=== PATIENT | female | born 1945 | race Caucasian/White ===

== ENCOUNTER 2016-08-08 11:51 | Emergency (ER) | payer MEDICARE, MEDICAID ==
[~2016-08-08] VITALS: Ht 156.2 cm; Wt 90.9 kg
[~2016-08-08 11:51] MED LIST: CITA20TA11 PO; HYDR-3605 PO; HYDR-4003 PO; LEVO100T6 PO; MELO-253 PO; [UNRECOGNIZED DRUG - CODE] PO
[2016-08-08 11:54] VITALS: BP 150/100; PULSE 71; RESP 16; O2SAT 97
[2016-08-08 12:53] LABS: APPEARANCE,URINE SLIGHTLY CLOUDY (CLEAR,HAZY); COLOR,URINE YELLOW (YELLOW)
[2016-08-08 12:54] LABS: OCCULT BLOOD,URINE NEGATIVE (NEGATIVE); UROBILINOGEN,URINE NORMAL (NORMAL)
[2016-08-08 13:11] LABS: BASOPHILS % (AUTO) 0.4 % (0-3); EOSINOPHILS % (AUTO) 0.7 % (0-5); MONOCYTES % (AUTO) 5.8 % (4-12); Mean Corpuscular Hemoglobin 29.6 pg (27.0-35.0); Mean Corpuscular Volume 94.5 fL (81-100); NEUTROPHILS % (AUTO) 79.8 % (40-74); Platelet Count 238 bil/L (150-400)
--- NOTE | 2016-08-08 13:19 | ED.REPORT ---
HPI-Abd Pain F 40 and Over Date of Service August 08, 2016 ED Provider: Wilbert Triplett MD A 71 year old female with a medical history including Parkinson's disease, hypothyroidism, and chronic pain presents to the ED from Urgent Care with lower abdominal pain onset last night. Associated symptoms include dysuria, fatigue, weakness, and confusion. The patient denies nausea, vomiting, fever, hematochezia, melena, back pain, or other symptoms. She has had two UTIs in the past two months. Nursing Notes Stated Complaint: POSSIBLE UTI SENT FROM URGENT CARE Chief Complaint: Female Abdominal Pain Nursing Notes Reviewed: Yes Allergies: Coded Allergies: No Known Allergies (Verified , 08/08/16) Scheduled Carbidopa/Levodopa ER 50-200 mg (Sinemet CR 50-200 mg) 1 Ea Tabcr 1 EA PO 6-7x daily Cephalexin (Keflex) 500 Mg Capsule 500 MG PO QID Citalopram (Citalopram) 20 Mg Tablet 40 MG PO DAILY Levothyroxine (Levothyroxine) 100 Mcg Tablet 88 MCG PO DAILY Meloxicam (Meloxicam) 15 Mg Tablet 15 MG PO DAILY Scheduled PRN HydrOXYzine HCl (HydrOXYzine HCl) 10 Mg Tablet 10-20 MG PO Q4-6H PRN PRN For Anxiety or Agitation Hydrocodone-Acetaminophen 5-325 mg (Hydrocodone-Acetaminophen 5-325 mg) 1 Each Tablet 1-2 EACH PO q 4-6 PRN PRN For Pain General Time Seen by MD: 12:14 Chief Complaint Abdominal pain Hx Obtained From: Patient Arrived By: Walk-in Sudden in Onset?: Yes Onset Occurred: Yesterday (Last night) Symptom Duration: Since onset Location: : Abdomen lower Quality: Painful Severity: Current: Moderate Severity: Maximum: Moderate Pertinent Negative: Relieved by nothing Context Related History: Reports: Urinary tract infection Recent Healthcare: Recent doctor visit Similar Sx Previous: Yes Past Medical History Past Medical History Hypothyroidism Chronic pain syndrome Parkinson's disease Past Surgical History Right knee replacement Reports: Hysterectomy Smoking History Former Smoker Social History Alcohol Use: Denies alcohol use Drug Use: Denies drug use Other Social History: Good social support Ambulatory Status Independent Review of Systems Constitutional: Reports: Fatigue, Weakness - generalized, Denies: Fever Respiratory: Denies: Non-productive cough, Shortness of breath GI: Reports: Abdominal pain (Lower), Denies: Hematochezia, Melena, Nausea, Vomiting Female: Reports: Dysuria Musculoskeletal: Denies: Back pain Complete sys rev & neg: except as marked. Neurologic: Reports: Confusion Physical Exam Vital Signs Vital Signs (First) Date Time Temp Pulse Resp B/P Pulse Ox O2 Delivery O2 Flow Rate FiO2 08/08/16 11:54 36.6 71 16 150/100 97 Room Air Initial VS: Reviewed Head / Eyes: Atraumatic, Normocephalic ENT: Conjunctiva normal, No scleral icterus Skin: Warm, Dry, No cyanosis Neurologic: Alert, Oriented, Nonfocal Psychiatric: Mood/affect normal, Behavior normal, Normal thought content General/Constitutional: Awake, Alert Respiratory / Chest: Breath sounds NL, Breath sounds = bilat, No respiratory distress Cardiovascular: Heart rate NL, Regular rhythm, Heart sounds NL, No murmurs Abdomen: Soft, Non-tender, No guarding, No rebound Lower Extremity / Pelvis / MS: Inspection NL, No edema Interpretation & Diagnostics Lab Results Interpretation Result Diagram: 08/08/16 1300 08/08/16 1300 Test 08/08/16 12:24 08/08/16 13:00 Urine Color Yellow (YELLOW) Urine Appearance Slightly cloudy Urine pH 7.0 (5.0-8.0) Urine Specific [place] 1.010 (1.003-1.035) Urine Protein Tracemg/dL (NEG,TRACE) Urine Glucose (UA) Negativemg/dL (NEGATIVE) Urine Ketones Negativemg/dL (NEGATIVE) Urine Occult Blood Negative (NEGATIVE) Urine Nitrite Negative (NEGATIVE) Urine Bilirubin Negative (NEGATIVE) Urine Urobilinogen Normalmg/dL (NORMAL) Urine Leukocyte Esterase Moderate (NEGATIVE) Urine RBC 0-2/hpf (0-2) Urine WBC >50/hpf (0-5) Urine Epithelial Cells Occasional/hpf (NONE-MOD) Urine Crystals None seen (NONE SEEN) Urine Bacteria Many/hpf (NONE-FEW) Urine Hyaline Casts None/lpf (NONE) Urine Granular Casts None seen (NONE SEEN) Urine Waxy Casts None seen (NONE SEEN) Urine Red Blood Cell Casts None seen (NONE SEEN) Urine White Blood Cell Casts None seen (NONE SEEN) Urine Mucus None seen (None Seen) Urine Trichomonas None seen (NONE SEEN) Urine Yeast None (NONE SEEN) Urinalysis Comment None Urine Culture Reflexed Indicated White Blood Count 10.0th/mm3 (3.8-10.1) Red Blood Count 4.76mil/mm3 (3.90-5.20) Hemoglobin 14.1g/dL (12.0-15.6) Hematocrit 45.0% (35.0-46.0) Mean Corpuscular Volume 94.5fL (81-100) Mean Corpuscular Hemoglobin 29.6pg (27.0-35.0) Mean Corpuscular Hemoglobin Concent 31.3% (32.0-37.0) Red Cell Distribution Width 15.7% (12.3-15.4) Platelet Count 238bil/L (150-400) Neutrophils (%) (Auto) 79.8% (40-74) Lymphocytes (%) (Auto) 13.2% (14-46) Monocytes (%) (Auto) 5.8% (4-12) Eosinophils (%) (Auto) 0.7% (0-5) Basophils (%) (Auto) 0.4% (0-3) Sodium Level 141mEq/L (134-144) Potassium Level 4.5mEq/L (3.5-5.2) Chloride Level 102mEq/L (97-108) Carbon Dioxide Level 27mmol/L (18-29) Blood Urea Nitrogen 19mg/dL (8-27) Creatinine 0.88mg/dL (0.57-1.00) Estimat Glomerular Filtration Rate 91mL/min (>59) Glucose Level 106mg/dL (60-99) Lactic Acid Level 1.1mmol/L (0.4-2.0) Calcium Level 8.9mg/dL (8.5-10.1) Magnesium Level 2.3mg/dL (1.6-2.6) Total Bilirubin 0.6mg/dL (0.0-1.2) Aspartate Amino Transf (AST/SGOT) 30U/L (0-50) Alanine Aminotransferase (ALT/SGPT) 9U/L (0-32) Alkaline Phosphatase 93U/L (25-165) Total Protein 7.3g/dL (6.4-8.4) Albumin 4.2g/dL (3.4-5.0) Lipase 23U/L (13-60) Re-Eval/Medical Decision Med Decision/Clinical Course 71-year-old female with recurrent UTIs presenting with dysuria. Vital signs stable. Exam is benign as above. White blood cell count lactate are normal. She does have a UTI on urinalysis. Patient will be treated with Keflex with return precautions for signs and symptoms pyelonephritis or any other new or worsening symptoms. Source of Hx: Old records Re-Evaluation/Progress : Time of Eval: 13:00 Patient Status: Condition improved Re-Evaluation/Progress Note: Discussed with patient lab results, diagnosis, and plan for discharge if additional labs are unremarkable. Follow-up and return to the ER instructions given. Patient agrees with plan for care and all questions were addressed. Counseled Regarding: Diagnosis, Lab results, Need for follow-up, When/why to return to ED Discharge & Departure Primary Impression: UTI (urinary tract infection) Urinary tract infection type: acute cystitis Hematuria presence: without hematuria Qualified Code: N30.00 - Acute cystitis without hematuria Disposition: Home Discharge Condition All VS Reviewed: Yes Condition: Improved Patient Instructions: Urinary Tract Infection in Women (GEN) Additional Instructions: Thank you for entrusting us with your care. Please take Keflex as prescribed. Call your primary care provider on Thursday for a follow-up appointment. Return to the ER with any new or worsening symptoms including abdominal pain, back pain, fever, chills, nausea, and vomiting. Referrals: [facility] (PCP) [place] Attestation Portions of this note were transcribed by Mary Ellen Vinson. I, Dr. Triplett, personally performed the history, physical exam, and medical decision-making; I reviewed and confirmed the accuracy of the information in the transcribed note. Signed by: Blas Whittington, 08/08/2016, 14:45 copies to: [facility] Wilbert Triplett MD August 08, 2016 13:19 MARY ELLEN VINSON August 08, 2016 13:25
[2016-08-08 13:34] LABS: Magnesium 2.3 mg/dL (1.6-2.6)
[2016-08-08] MEDS ORDERED: CEPH-512 PO (14:10)
[2016-08-08 17:00] VITALS: BP 132/80; PULSE 66; RESP 16; O2SAT 93
[2016-08-08 17:01] VITALS: BP 132/80; PULSE 66; RESP 16; O2SAT 93
== END 2016-08-08 17:02 | disposition home or self-care (01) ==
LOC: SED 12:12
DX: N30.00 Acute cystitis without hematuria (principal); G20 Parkinson's disease; E03.9 Hypothyroidism, unspecified; Z87.891 Personal history of nicotine dependence

== ENCOUNTER 2016-10-12 08:31 | Inpatient (IN) | payer MEDICARE, MEDICAID ==
[~2016-10-12] VITALS: Ht 154.9 cm; Wt 95.5 kg
[~2016-10-12 08:31] MED LIST changes: +CEPH-512 PO
[2016-10-12 08:36] VITALS: BP 146/66; PULSE 93; RESP 20; O2SAT 91
--- NOTE | 2016-10-12 08:37 | ED.REPORT ---
HPI-General Illness Date of Service Oct 12, 2016 ED Provider: Alexis Smith MD Pt is a 71 year old female with a hx of Parkinson's and UTIs who presents to the ED via EMS with concerns for weakness, fevers and difficulty urinating. She has been feeling increasingly weak and confused over the last four days. These symptoms have been worsening over the last couple of days, and was unable to get our of bed or ambulate this morning. Pt states that she has had UTIs in the past, and has a similar presentation. Pt admits to a non-productive cough, mild shortness of breath, dysuria, but she denies any significant chest pain, loss of consciousness, rash, trauma to her head, nausea or any other symptoms. Nursing Notes Stated Complaint: ALTERED LOC Chief Complaint: General Complaint Nursing Notes Reviewed: Yes Allergies: Coded Allergies: No Known Allergies (Verified , 08/08/16) Scheduled Carbidopa/Levodopa (Rytary ER 61.25 mg-245 mg Cap) 61.25 Mg-245 Mg Capsule.er 2 EACH PO 5XD Carbidopa/Levodopa (Rytary ER 23.75 mg-95 mg Cap) 23.75 Mg-95 Mg Capsule.er 1 EACH PO 5XD Citalopram (Citalopram) 20 Mg Tablet 40 MG PO DAILY Rivastigmine (Rivastigmine) 1.5 Mg Capsule 2 CAPSULE PO BID Scheduled PRN HydrOXYzine HCl (HydrOXYzine HCl) 10 Mg Tablet 10-20 MG PO Q4-6H PRN PRN For Anxiety or Agitation Hydrocodone-Acetaminophen 5-325 mg (Hydrocodone-Acetaminophen 5-325 mg) 1 Each Tablet 1-2 EACH PO q 4-6 PRN PRN For Pain Miscellaneous Medications Levothyroxine Sodium (Levo-T) 100 Mcg Tablet 100 MCG PO General Time Seen by MD: 08:36 Chief Complaint Altered mental status Hx Obtained From: Patient Arrived By: Walk-in Sudden in Onset?: Yes Onset Occurred: Yesterday Symptom Duration: Since onset Severity: Current: No pain currently Severity: Maximum: No pain Similar Sx Previous: Yes Past Medical History Past Medical History Hypothyroidism Chronic pain syndrome Parkinson's disease Past Surgical History Right knee replacement Reports: Hysterectomy Smoking History Former Smoker Social History Alcohol Use: Denies alcohol use Drug Use: Denies drug use Other Social History: Good social support Ambulatory Status Independent Review of Systems Full Review of Systems Constitutional: Reports: Fever, Weakness - generalized, Denies: Chills, Malaise Respiratory: Reports: Non-productive cough Cardiovascular: Denies: Chest pain, Syncope GI: Reports: Diarrhea, Denies: Abdominal pain, Nausea, Vomiting Female: Reports: Urination decreased Musculoskeletal: Denies: Back pain Skin: Denies Rash Neurologic: Denies: Change LOC, Dizziness, Headache, Syncope, Weakness Complete sys rev & neg: except as marked. Physical Exam Vital Signs Vital Signs Date Time Temp Pulse Resp B/P Pulse Ox O2 Delivery O2 Flow Rate FiO2 10/12/16 09:08 90 21 141/80 94 Nasal Cannula 2 10/12/16 08:57 38.1 94 Nasal Cannula 2 10/12/16 08:36 37.2 93 20 146/66 91 Room Air Initial VS: Reviewed Head / Eyes: Atraumatic, Normocephalic, PERRL Neck: Supple, Non-tender, Full range of motion Cardiovascular: Regular rate & rhythm, Heart sounds normal, Intact distal pulses Back: No CVA tenderness Skin: Warm, Dry, No cyanosis General/Constitutional: No acute distress Somnulent Answers questions appropriately, but often dozes off mid-sentence Head and face are atraumatic No rash ENT: Atraumatic Mouth: Positive: Mucous membranes dry Respiratory / Chest: Breath sounds NL Coarse breath sounds throughout Decreased breath sounds at the left lung base Interpretation & Diagnostics Lab Results Interpretation Result Diagram: 10/12/16 0840 10/12/16 0840 Test 10/12/16 08:40 10/12/16 09:00 10/12/16 09:01 White Blood Count 11.5th/mm3 (3.8-10.1) Red Blood Count 4.60mil/mm3 (3.90-5.20) Hemoglobin 14.1g/dL (12.0-15.6) Hematocrit 44.1% (35.0-46.0) Mean Corpuscular Volume 95.9fL (81-100) Mean Corpuscular Hemoglobin 30.7pg (27.0-35.0) Mean Corpuscular Hemoglobin Concent 32.0% (32.0-37.0) Red Cell Distribution Width 15.6% (12.3-15.4) Platelet Count 202bil/L (150-400) Neutrophils (%) (Auto) 86.6% (40-74) Lymphocytes (%) (Auto) 4.3% (14-46) Monocytes (%) (Auto) 7.2% (4-12) Eosinophils (%) (Auto) 1.5% (0-5) Basophils (%) (Auto) 0.2% (0-3) Sodium Level 141mEq/L (134-144) Potassium Level 4.2mEq/L (3.5-5.2) Chloride Level 102mEq/L (97-108) Carbon Dioxide Level 23mmol/L (18-29) Blood Urea Nitrogen 17mg/dL (8-27) Creatinine 0.96mg/dL (0.57-1.00) Estimat Glomerular Filtration Rate 82mL/min (>59) Glucose Level 99mg/dL (60-99) Calcium Level 8.6mg/dL (8.5-10.1) Magnesium Level 2.0mg/dL (1.6-2.6) Total Bilirubin 0.6mg/dL (0.0-1.2) Aspartate Amino Transf (AST/SGOT) 16U/L (0-50) Alanine Aminotransferase (ALT/SGPT) 10U/L (0-32) Alkaline Phosphatase 82U/L (25-165) Troponin T 0.010ug/L (0.0-0.011) Pro-B-Type Natriuretic Peptide 785.1pg/mL (0-301) Total Protein 7.3g/dL (6.4-8.4) Albumin 3.8g/dL (3.4-5.0) Lactic Acid Level 0.7mmol/L (0.4-2.0) Urine Color Yellow (YELLOW) Urine Appearance Hazy (CLEAR,HAZY) Urine pH 6.5 (5.0-8.0) Urine Specific [place] 1.010 (1.003-1.035) Urine Protein Negativemg/dL (NEG,TRACE) Urine Glucose (UA) Negativemg/dL (NEGATIVE) Urine Ketones Negativemg/dL (NEGATIVE) Urine Occult Blood Negative (NEGATIVE) Urine Nitrite Negative (NEGATIVE) Urine Bilirubin Negative (NEGATIVE) Urine Urobilinogen Normalmg/dL (NORMAL) Urine Leukocyte Esterase Small (NEGATIVE) Urine RBC 0-2/hpf (0-2) Urine WBC 11-50/hpf (0-5) Urine Epithelial Cells Occasional/hpf (NONE-MOD) Urine Crystals None seen (NONE SEEN) Urine Bacteria Many/hpf (NONE-FEW) Urine Hyaline Casts None/lpf (NONE) Urine Granular Casts None seen (NONE SEEN) Urine Waxy Casts None seen (NONE SEEN) Urine Red Blood Cell Casts None seen (NONE SEEN) Urine White Blood Cell Casts None seen (NONE SEEN) Urine Mucus None seen (None Seen) Urine Trichomonas None seen (NONE SEEN) Urine Yeast None (NONE SEEN) Urinalysis Comment None Urine Culture Reflexed Indicated ECG Interpretation ECG Interpretation: SR - 91 LBBB When compared to prior, dated: 05/20/14 pt remains with LBBB no acute morphologic changes hr is slightly increased Time: 08:45 Interpreted by: ED physician X-Ray Chest Interpretation Chest Xray Interpretation: IMPRESSION: 1. No definite acute cardiopulmonary disease. Dictated by: Dannie Oliveros M.D. on 10/12/2016 at 9:24 View: Portable, 1 view Interpretation / Wet Read by: Interpret - Radiologist Re-Eval/Medical Decision Med Decision/Clinical Course Pt is a 71 year old female with a hx of Parkinson's and frequent UTIs who presents to the ED via EMS with concerns for weakness, fevers and difficulty urinating. She has been feeling increasingly weak and confused over the last four days. These symptoms have been worsening over the last couple of days, and was unable to get our of bed or ambulate this morning. Pt states that she has had UTIs in the past, and has a similar presentation. Pt admits to a non- productive cough, mild shortness of breath, dysuria, but she denies any significant chest pain, loss of consciousness, rash, trauma to her head, nausea or any other symptoms. Upon arrival to the emergency department the patient is febrile with a temperature of 38.1 though otherwise hemodynamically stable. She is accompanied by her partner. She is obviously confused and unable to provide significant history so most of the history is obtained from her partner. Of note she is slightly hypoxic on room air and was placed on 2 L by nasal cannula. Laboratory studies notable as below: CBC: Leukocytosis, otherwise normal CMP: unremarkable Lactic Acid: 0.7 UA: few Leukocytes, no nitrites, many bacteria Chest x-ray was obtained and demonstrated no focal pneumonia or acute cardiopulmonary process. Overall presentation consistent with urinary tract infection. Given the patient 's advanced age, fever and signs of systemic illness I feel that she requires admission. At this time she technically meets sepsis criteria and her lactic acid is not significantly elevated nor is she with tachycardia or hypotension. Administered Tylenol for her fever as well as an IV fluid bolus. 2 sets of blood cultures were obtained and she was started on IV ceftriaxone. Patient was discussed with hospitalist and admitted for further management. Source of Hx: Old records Time of Eval: 09:40 Re-Evaluation/Progress Note: Pt is rechecked and informed of her labs and the plan to admit her at this time. She understands and agrees, all questions are addressed. Counseled Regarding: Diagnosis, Lab results, Need for admission Discharge & Departure Primary Impression: Fever Fever type: unspecified Qualified Code: R50.9 - Fever, unspecified Additional Impressions: Altered mental status Altered mental status type: unspecified Qualified Code: R41.82 - Altered mental status, unspecified Hypoxia UTI (urinary tract infection) Urinary tract infection type: site unspecified Hematuria presence: without hematuria Qualified Code: N39.0 - Urinary tract infection, site not specified Leukocytosis Leukocytosis type: unspecified Qualified Code: D72.829 - Elevated white blood cell count, unspecified Sepsis Sepsis type: sepsis due to unspecified organism Qualified Code: A41.9 - Sepsis, unspecified organism Disposition: ADMITTED TO HOSPITAL Discharge Condition All VS Reviewed: Yes Condition: Stable Referrals: [facility] Residency [facility] (PCP) Crit Care Except Billable Proc Time Spent: 75-104 minutes Services Performed: Patient management by me, Time spent at bedside, Reviewing test results, Reviewing imaging, Discussing patient care, Documentation in record, Time with fam/surrogate Scribe Attestation Portions of this note were transcribed by Angeline Davis. I, Dr. Smith personally performed the history, physical exam and medical decision-making; I reviewed and confirmed the accuracy of the information in the transcribed note. Signed by: Blas Hanna, 10/12/2016 [Time]. copies to: [facility] Alexis Smith MD Oct 12, 2016 08:37 RADHA DAVIS Oct 12, 2016 08:50
[2016-10-12 08:49] LABS: BASOPHILS % (AUTO) 0.2 % (0-3); EOSINOPHILS % (AUTO) 1.5 % (0-5); MONOCYTES % (AUTO) 7.2 % (4-12); Mean Corpuscular Hemoglobin 30.7 pg (27.0-35.0); Mean Corpuscular Volume 95.9 fL (81-100); NEUTROPHILS % (AUTO) 86.6 % (40-74); Platelet Count 202 bil/L (150-400)
[2016-10-12 08:57] VITALS: O2SAT 94
[2016-10-12 09:08] VITALS: BP 141/80; PULSE 90; RESP 21; O2SAT 94
[2016-10-12 09:20] LABS: TROPONIN T 0.01 ug/L (0.0-0.011)
[2016-10-12 09:21] LABS: APPEARANCE,URINE HAZY (CLEAR,HAZY); COLOR,URINE YELLOW (YELLOW); OCCULT BLOOD,URINE NEGATIVE (NEGATIVE); PH,URINE 6.5 (5.0-8.0); UROBILINOGEN,URINE NORMAL (NORMAL)
[2016-10-12] MEDS ORDERED: 0.9% Sodium Chloride 1,000 ML IV ONE (09:25)
[2016-10-12] MEDS ORDERED: Ondansetron 2 mg/mL 2 mL Inj IVPUSH PRN ×2 (09:25→10:30)
[2016-10-12] MEDS ORDERED: Alum-Mag Hydrox-Simeth 30 mL Suspension PO PRN ×2 (09:25→10:30)
--- NOTE | 2016-10-12 09:32 | DRSVH ---
PROCEDURE: X-RAY CHEST ONE VIEW, PORTABLE ([id number]) INDICATIONS: SOB TECHNIQUE: One view of the chest was acquired. COMPARISON: [facility], , CHEST 1VW (PORTABLE), 05/19/2014, 18:41. FINDINGS: Surgical changes and devices: None. Lungs and pleura: The medial lung apices are partially obscured by the patient's neck soft tissues. No pleural effusions or definite pneumothorax. Visualized lungs are clear. Mediastinum: Mediastinal contours appear unchanged. Heart size is within normal limits for techniqu e. Bones and chest wall: No suspicious bony lesions. Overlying soft tissues appear unremarkable. IMPRESSION: 1. No definite acute cardiopulmonary disease. Dictated by: Dannie Oliveros M.D. on 10/12/2016 at 9:24 Approved by: Dannie Oliveros M.D. on 10/12/2016 at 9:24
[2016-10-12] MEDS ORDERED: CARB1CAP PO (09:33)
[2016-10-12] MEDS ORDERED: RIVA1.5C6 PO (09:33)
[2016-10-12] MEDS ORDERED: LEVO-88 PO (09:33)
[2016-10-12] MEDS ORDERED: CARB1CAP7 PO (09:33)
[2016-10-12] MEDS ORDERED: cefTRIAXone Inj 2,000 MG in Dextrose 5% Minibag Plus 50 ML IV ONE (09:40)
[2016-10-12] MEDS ORDERED: Polyethylene Glycol (PEG) 17 Gm Powder PO PRN (10:30)
[2016-10-12] MEDS ORDERED: cefTRIAXone Inj 2,000 MG in Dextrose 5% Minibag Plus 50 ML IV SCH (11:00)
[2016-10-12 11:13] VITALS: BP 144/82; PULSE 84; RESP 20; O2SAT 95
[2016-10-12] MEDS: 0.9% Sodium Chloride 1,000 ML IV SCH ×2 (11:21→22:49)
--- NOTE | 2016-10-12 11:50 | NUR ---
Evaluation completed. Please go to "Notes" then click on "Assessments and Notes" (bottom left corner of screen). Then select appropriate discipline tab on top of screen.
[2016-10-12] MEDS ORDERED: HYDROXYZINE HCL 10 MG PO PRN (13:15)
[2016-10-12] MEDS ORDERED: QUET25TA73 PO (13:32)
[2016-10-12] MEDS: Nystatin 100,000 Unit/Gm 15 Gm Powder TOPICAL SCH ×2 (13:41→19:47)
[2016-10-12] MEDS ORDERED: CARBIDOPA PO SCH ×2 (14:00)
[2016-10-12] MEDS ORDERED: LEVODOPA PO SCH ×2 (14:00)
[2016-10-12] MEDS ORDERED: Carbidopa-Levodopa 50-200 mg ER12 Tablet PO SCH (14:48)
[2016-10-12] MEDS ORDERED: CARBIDOPA LEVODOPA PO SCH (14:51)
[2016-10-12] MEDS: RYTARY PO SCH ×6 (15:24→23:16)
--- NOTE | 2016-10-12 16:02 | NUR ---
Admit To [facility] room 1005 from ER at 10:50. Spouse at bedside. Alert and oriented, on 2L oxygen via nc. Marked generalized weakness, unable to transfer self from stretcher to bed. Med rec and admit done in ER by admit RN.
--- NOTE | 2016-10-12 16:42 | PCM.HPMED ---
Subjective Date of Service Oct 12, 2016 Primary Provider: Admitting Physician: Julien Reyes MD Primary Care Physician: Clinic,[facility] Residency Attending Physician: Julien Reyes MD Admit Status: From the Emergency Department, Admit to Red Team Chief Complaint: Fever, altered mental status and inability to void History of Present Illness: The patient is a 71-year-old white female with history of Parkinson's and frequent urinary tract infections develop increasing weakness and confusion over the last 4 days. The patient was unable to get out of bed or ambulate this morning. The patient has had urinary tract infections in the past and has had a similar presentation. However, she usually does not have fever. Her significant other are checked her temperature this morning and it was 101F. Therefore, patient was brought to [facility] emergency room for further evaluation and treatment. In the emergency department patient's temperature was 38.1C. Patient was found to be obviously confused and unable to provide significant history. Of note patient was found to be slightly hypoxic on room air was provided oxygen 2 L by nasal cannula. She is not on oxygen at home. Found to have a rattling cough and therefore chest x-ray was obtained and demonstrated no focal pneumonia or acute cardiopulmonary process. Given the patient's advanced age, fever and signs of systemic illness the patient's emergent physician felt that the patient required admission as patient met septic criteria is given an IV fluid bolus and 2 sets of blood cultures were obtained and her lactic acid was normal. She was administered Tylenol for fever and patient was started on IV ceftriaxone. Patient was then admitted to the hospitalist service for further evaluation and treatment. Review of Systems: General: Patient is in no apparent distress. However, she is a very poor historian and is having trouble finding her words which is not normal for her. HEENT: Patient has no headache, patient has no diplopia, patient has no changes in vision. However, patient does wear glasses and her eyes get "dry" B" at night Patient has no problems with their ears, nose or throat. Patient is edentulous and wears upper dentures normally. Patient has no pharyngitis or history of thrush. Neck: Patient has no stiffness in the neck. Patient has no lymphadenopathy. Patient has no other problems with their neck. Pulmonary: Patient has a very mild increase in shortness of breath, with a cough , no expectoration of sputum. Patient has no pleurisy. Patient has no chest pain. Patient has no history of asthma or COPD. Patient has a history of having pneumonia numerous times while in preschool Cardiovascular: Patient has no chest pain. Patient has no history of heart murmur. Patient has no palpitations. Patient has no history of myocardial infarction. Patient has no history of coronary artery disease. Gastrointestinal: Patient has no history of hepatitis A, B or C. Patient has no history of peptic ulcer disease. Patient has no history of gastroesophageal reflux disease. Patient has no history of nausea, vomiting, or diarrhea. Patient has no history of hematemesis, hematochezia, or melena. Patient has no history of colitis. Renal: Patient has no history of kidney disease. No history of kidney stones. 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 Patient has a history of incontinence and wears pull-ups. She does try to make it to the bathroom however since starting the drug Exelon she has trouble making it to the bathroom. Musculoskeletal: Patient has no history of muscular skeletal problems. Neurologic: Patient has no history of stroke, no history of seizure, no history of TIA. Psychiatric: Patient has no history of psychiatric problems. The remainder of the entire review of systems was reviewed with patient and is as mentioned above otherwise negative. Allergies Coded Allergies: No Known Allergies (Verified , 08/08/16) Home Medications Scheduled Carbidopa/Levodopa (Rytary ER 61.25 mg-245 mg Cap) 61.25 Mg-245 Mg Capsule.er 2 EACH PO 5XD Carbidopa/Levodopa (Rytary ER 23.75 mg-95 mg Cap) 23.75 Mg-95 Mg Capsule.er 1 EACH PO 5XD Citalopram (Citalopram) 20 Mg Tablet 40 MG PO DAILY Rivastigmine (Rivastigmine) 1.5 Mg Capsule 2 CAPSULE PO BID Scheduled PRN HydrOXYzine HCl (HydrOXYzine HCl) 10 Mg Tablet 10-20 MG PO Q4-6H PRN PRN For Anxiety or Agitation Hydrocodone-Acetaminophen 5-325 mg (Hydrocodone-Acetaminophen 5-325 mg) 1 Each Tablet 1-2 EACH PO q 4-6 PRN PRN For Pain Miscellaneous Medications Levothyroxine Sodium (Levo-T) 100 Mcg Tablet 100 MCG PO PMH Hypothyroidism Chronic pain syndrome Parkinson's disease Spinal stenosis Osteoarthritis Depression Memory loss Surgical History Cholecystectomy in 1988 at [facility] Right knee replacement at [facility] in 2005 Hysterectomy in the 1980s Thyroidectomy 2013 at [facility] Surgical correction of bilateral double ureters with ureters being reimplanted due to problem with ureteral reflux Family History Patient was adopted however she had 2 biological sisters. One sister of Parminder syndrome, the other sister is alive and as far as the patient knows is healthy. The patient did not know her mother but she thinks she may have of a stroke at the age of 82 based upon comments from her sister. The patient's father committed suicide after serving in the in World War II. Social History Hx Alcohol Use: Yes (The patient rarely drinks alcohol.) Hx Substance Use: No Hx Tobacco Use: Yes Smoking Status: Former Smoker (The patient smoked 1 half to 1 pack per day for 20 years.) Living Arrangement: with Family Additional Information Patient was born in [facility]. She went to high school at [employer] in [place], [place]. Patient graduated high school and went to [employer] and then attended [employer]. Patient then attended [employer] and was one quarter of a semester away from graduating and then did not graduate. She did not want to volunteer why she decided not to graduate but was working towards her bachelor' s degree in social work. Patient is a former smoker she smokes [place] cigarettes with filters anywhere between 1/2-1 pack per day for approximately 20 years. Patient rarely drink alcohol. She is 5 para 5 her youngest daughter Pushpa lives nearby she has 1 daughter who lives in [place]. Patient has been living with her significant other Margot for 30 years and Margot is now her power of title attorney. Exam Vital Signs Vital Sign - Last Date Time Temp Pulse Resp B/P Pulse Ox O2 Delivery O2 Flow Rate FiO2 10/12/16 11:37 Supplement Oxygen 10/12/16 11:13 37.3 84 20 144/82 95 2.00 Exam General: Patient is in no apparent distress lying supine in bed. HEENT: Head is atraumatic and normocephalic. Eyes: Pupils are equally round and reactive to light and accommodation. Extraocular muscles are intact. Sclera are white, anicteric. Subconjunctival mucosa is pink. Ears and nose are unremarkable. Oropharynx: There is no mucosal lesions, there is no thrush, there is no pharyngitis. Patient is edentulous. Mucosa is somewhat dry. Neck: Is supple, there are no nodes, or masses or tenderness. Chest: Is significant for upper airway congestion. Other than coarse breath sounds, the lung bettencourt are clear. Heart: Rate, rhythm is regular. There is no murmur, rub or gallop. Abdomen: Good bowel sounds are present. Abdomen is soft, nontender, no organomegaly or masses were appreciated. Extremities: Are symmetrical and well perfused. There is no edema, there is no cellulitis, no rash. Neurologic: There are no focal neurological deficits. Cranial nerves II through XII are intact. There are no sensory or motor deficits. Patient exhibits some cogwheel rigidity and generalized weakness. Mentation appears slowed and she is slow to respond. She admits having trouble finding words. Psychiatric: Patients mood is calm and she shows no sign of agitation. Genital: Deferred Rectal: Deferred Lab and Diagnostics Result Diagram: 10/12/16 0840 10/12/16 0840 Microbiology Blood and urine cultures are pending. X-Rays, CTs and MRIs PROCEDURE: X-RAY CHEST ONE VIEW, PORTABLE ([id number]) INDICATIONS: SOB TECHNIQUE: One view of the chest was acquired. COMPARISON: [facility], , CHEST 1VW (PORTABLE), 05/19/2014, 18:41. FINDINGS: Surgical changes and devices: None. Lungs and pleura: The medial lung apices are partially obscured by the patient' s neck soft tissues. No pleural effusions or definite pneumothorax. Visualized lungs are clear. Mediastinum: Mediastinal contours appear unchanged. Heart size is within normal limits for technique. Bones and chest wall: No suspicious bony lesions. Overlying soft tissues appear unremarkable. IMPRESSION: 1. No definite acute cardiopulmonary disease. Dictated by: Dannie Oliveros M.D. on 10/12/2016 at 9:24 Approved by: Dannie Oliveros M.D. on 10/12/2016 at 9:24 Assessment & Plan The patient is a 71-year-old white female with history of Parkinson's and frequent urinary tract infections develop increasing weakness and confusion over the last 4 days. The patient was unable to get out of bed or ambulate this morning. The patient has had urinary tract infections in the past and has had a similar presentation. However, she usually does not have fever. Her significant other are checked her temperature this morning and it was 101F. Therefore, patient was brought to [facility] emergency room for further evaluation and treatment. In the emergency department patient's temperature was 38.1C. Patient was found to be obviously confused and unable to provide significant history. Of note patient was found to be slightly hypoxic on room air was provided oxygen 2 L by nasal cannula. She is not on oxygen at home. Found to have a rattling cough and therefore chest x-ray was obtained and demonstrated no focal pneumonia or acute cardiopulmonary process. Given the patient's advanced age, fever and signs of systemic illness the patient's emergent physician felt that the patient required admission as patient met septic criteria is given an IV fluid bolus and 2 sets of blood cultures were obtained and her lactic acid was normal. She was administered Tylenol for fever and patient was started on IV ceftriaxone. Patient was then admitted to the hospitalist service for further evaluation and treatment. # Urinary tract infection with sepsis, present time of admission. Active - Check urine culture obtained in the emergency room - Continue Rocephin pending urine culture - We will give gentle IV hydration due to patient's age - Check serial CBCs - Check renal ultrasound to look for hydronephrosis or obstruction. # Parkinson's disease with exacerbation secondary to above infection, present at time of admission. Active - Altered level of consciousness with difficulty finding words secondary to infection and septicemia. - Increased weakness secondary to infection and septicemia. Consult physical therapy and occupational therapy to work with patient to increase his strength while her infection is being treated. - Increased difficulty swallowing secondary to infection and septicemia. We will consult speech therapy to work with patient, to increase her strength of swallowing while her infection is being treated. - Continue carbidopa/levodopa as taken at home - Continue Rocephin and adjust antibiotics according to culture results. # Dementia due to Parkinson's disease exacerbated by current infection with sepsis, present at the time of admission. Active - Continue Exelon - Continue Rocephin and adjust Anaprox according to culture results # Chronic pain syndrome secondary to spinal stenosis and osteoarthritis, presence of admission. Active - Continue hydrocodone-acetaminophen when necessary - Physical therapy and occupational therapy have been consulted. # Hypothyroidism, present time of admission. Stable - Continue levothyroxine replacement as at home. - Check TSH level # Depression, present times admission. Stable - Continue to citalopram 40 mg by mouth daily - Supportive care Disposition: As patient will be admitted for more than 2 midnights for the evaluation and treatment of the above conditions, the patient was admitted as an inpatient. Pain Evaluation: Adequate Pain Control GI Prophylaxis: Not indicated VTE Prophylaxis: Sub-Q Enoxaparin VTE Mechanical Devices: Intermittant Pneumatic CD Resuscitation Status: CPR: Attempt Resuscitation Julien Reyse MD Oct 12, 2016 16:42
[2016-10-12 18:27] VITALS: BP 149/93; PULSE 79; RESP 19; O2SAT 93
[2016-10-12 19:18] VITALS: BP 140/76; PULSE 78; RESP 20; O2SAT 94
--- NOTE | 2016-10-12 21:07 | NUR ---
TIM signed by pt's POA.
--- NOTE | 2016-10-12 21:18 | NUR ---
Confusion This evening patient has presented with confusion/forgetfulness/agitation, and some verbal combativeness towards spouse and staff. Will follow some commands to a certain extent. Spouse states that this is not baseline for patient. Unsafe to get patient up at this time. PT eval in the am. Brief worn as patient is incontinent. Constantly tries to get out of bed. Charge nurse and family members aware of situation, and a sitter has come down to sit with patient. Care continues.
[2016-10-13 00:08] VITALS: BP 135/77; PULSE 72; RESP 26; O2SAT 90
--- NOTE | 2016-10-13 03:51 | NUR ---
Continued Mentation Patient mentation improved, able to answer appropriately. Patient then fell asleep and awoke very confused again. Incontinent, but accepting of care. will continue to monitor.
[2016-10-13 04:34] VITALS: BP 153/71; PULSE 70; RESP 30; O2SAT 93
[2016-10-13] MEDS: HYDROcodone-APAP 5-325 mg Tablet PO PRN (04:40)
[2016-10-13 05:29] LABS: BASOPHILS % (AUTO) 0.2 % (0-3); EOSINOPHILS % (AUTO) 1.7 % (0-5); MONOCYTES % (AUTO) 11.2 % (4-12); Mean Corpuscular Hemoglobin 30.3 pg (27.0-35.0); Mean Corpuscular Volume 95.1 fL (81-100); NEUTROPHILS % (AUTO) 73.2 % (40-74); Platelet Count 173 bil/L (150-400)
[2016-10-13 05:59] LABS: Magnesium 1.8 mg/dL (1.6-2.6)
[2016-10-13] MEDS: RYTARY PO SCH ×10 (06:53→20:51)
[2016-10-13 08:53] VITALS: BP 144/85; PULSE 70; RESP 22; O2SAT 92
[2016-10-13] MEDS: Nystatin 100,000 Unit/Gm 15 Gm Powder TOPICAL SCH ×2 (09:14→20:51)
--- NOTE | 2016-10-13 10:52 | DRSVH ---
PROCEDURE: US RENAL SONOGRAM INDICATIONS: urinary tract infection/possible hydronephrosis TECHNIQUE: Real-time scanning was performed of the kidneys and bladder, with image documentation. COMPARISON: [facility], CT, CHEST ANGIO-PE, 05/19/2014, 20:11. FINDINGS: Kidneys: Kidneys are normal in size. Right kidney measures 9.0 cm long; left kidney measures 9.9 cm long. Right renal cortical thickness is 1.2 cm; left renal cortical thickness is 1.2 cm. Renal cor tical echotexture is normal. No nephrolithiasis. No suspicious solid mass lesions. There is a ques tionable presence of mild left hydronephrosis. Previous CT chest on 05/19/14 demonstrates only the sup erior pole of the left kidney with presence of low attenuation. Right exophytic cyst is present measu ring 40 x 34 x 30 mm. A left exophytic focus of hypoechogenicity is present measuring 18 x 17 x 20 mm . Bladder: Pre-void bladder volume is 196 mL. Post-void residual is 196 mL. Patient was unable to vo id. Pre-void images demonstrate no intraluminal masses or stones. On pre-void images, neither ureter al jets are noted with color Doppler interrogation. (Of note, ureteral jets may not be detectable in up to 25% of cases due to insufficient differences in specific gravity between ureteral and bladder urine). Miscellaneous: No free pelvic fluid. IMPRESSION: 1. Exophytic renal cysts bilaterally. 2. Prominence within the renal collecting system on the left is noted suspicious for hydronephrosis. However, appearance could be also secondary to parapelvic cysts, as partial visualization on 05/19/14 exam demonstrated low attenuation within this region which could workup for chronic parapelvic cysts, but does not exclude hydronephrosis. Post void images were unable to be obtained, as patient was deanne ble to void. Recommend followup Ultrasound or CT abdomen pelvis as recommended. Dictated by: Anat Mar M.D. on 10/13/2016 at 10:45 Approved by: Anat Mar M.D. on 10/13/2016 at 10:50
[2016-10-13] MEDS: cefTRIAXone Inj 2,000 MG in Dextrose 5% Minibag Plus 50 ML IV SCH (11:18)
[2016-10-13] MEDS: 0.9% Sodium Chloride 1,000 ML IV SCH (11:19)
--- NOTE | 2016-10-13 11:54 | NUR ---
Evaluation completed. Please go to "Notes" then click on "Assessments and Notes" (bottom left corner of screen). Then select appropriate discipline tab on top of screen.
[2016-10-13 13:22] VITALS: BP 165/91; PULSE 79; RESP 20; O2SAT 92
--- NOTE | 2016-10-13 15:07 | NUR ---
Social Work: Initial Assessment/Multi-Disciplinary Rounds D: EMR reviewed. Pt is 71 y/o female admitted for fever, AMS per H&P. SW attempted to meet with pt at bedside to conduct initial assessment. Pt was not oriented to time or place. Pt was not an accurate historian at this time. SW asked pt if it was okay to call her SO, Margot Maldonado ([phone]) regarding discharge planning. Pt gave consent to contact her SO to discuss discharge planning. SW explained role and wrote phone number on white board. Pt's insurance is [employer] and [facility] Supplemental. PCP is Dr. Gutierrez at [facility]. Pt has a readmit score or 2. SW placed T/C to pt's SO Margot Maldonado ([phone]) to complete initial assessment. Margot stated that pt has completed DPOA/advanced directive ppw and SW requested Margot provide a copy to the hospital tomorrow during her next visit - Margot was agreeable. Margot confirmed that pt has been diagnosed with dementia secondary to Parkinson's. Pt has [facility] caregiver through [facility] for 101 hours per month. Pt's reel slitter is Vanessa Knowles ([phone]). BRAULIO faxed H&P to confirmed fax of [phone]. Pt lives with her SO in a single-story home in [place] with W/C access, 0 steps to enter. Pt has hx at [facility] and with [facility] for PT. Pt is no longer open with [facility] for PT. Pt does not have LTC insurance or VA benefits. Pt does not drive. Pt is not independent at baseline. Pt has dementia secondary to Parkinson's at baseline. Pt's SO states she is legally blind and does not drive or provide transportation for pt. Pt's SO stated that pt normally uses paratransit or a cabulance for transport. BRAULIO confirmed pt arrived to hospital via EMS and qualifies for [facility] transport home. Per MD in multi-disciplinary rounds, pt presents with a UTI, weakness, and fever. PT/ST/OT are pending. BRAULIO discussed discharge needs with MD and RN during rounds and will await PT/OT/ST to determine/coordinate medical needs at discharge. BRAULIO confirmed this with pt's SO and SO agreeable. A: Pt has dementia secondary to Parkinson's at baseline. P: SW faxed H&P to [facility] case management assistant at [phone]. Pt arrived to hospital via EMS and qualifies for [facility] transport home - this will need to be arranged if pt discharges home. Pt's SO updated on this and agreeable to plan. Per MD in multi-disciplinary rounds, pt presents with a UTI, weakness, and fever. PT/ST/OT are pending. BRAULOI discussed discharge needs with MD and RN during rounds and will await PT/OT/ST to determine/coordinate medical needs at discharge. BRAULIO confirmed this with pt's SO and SO agreeable. LAURA Ac Addendum: 10/13/[address] Amended: Links added.
--- NOTE | 2016-10-13 15:40 | NUR ---
NUTRITION ASSESSMENT: ASSESS: 71YO F admit with UTI with sepsis, AMS, with sitter. Poor po noted. St following. PMHX: Parkinsons, dementia DIET: Soft. PO bites-50% LABS: Alb 3.4, Ca 7.7 MEDS: Reviewed GI: No BM WEIGHT: 95.45kg BMI: 39.0 EST.NEEDS: [id number], 70-90g pro (25-30kcal/kg ABW; 1.2-1.5g/kg ABW) NUTRITION DIAGNOSIS: (1) Chew/swallowing difficulty related to dysphagia as evidenced by modified diet texture. (2) Inadequate oral intake related to AMS as evidenced by bites-50% of po intake. INTERVENTION: (1) Ensure added to meal tray to promote adequate kcal/protein intake. MONITOR/EVALUATE: PO intake, lab values, texture tolerance. F/U per moderate risk.
--- NOTE | 2016-10-13 15:56 | NUR ---
Evaluation completed. Please go to "Notes" then click on "Assessments and Notes" (bottom left corner of screen). Then select appropriate discipline tab on top of screen.
--- NOTE | 2016-10-13 17:10 | NUR ---
IV R wrist peripheral IV infiltrated with NS only. Arm puffy, warm compress applied. IV discontinued intact, started new 22g on L forearm.
--- NOTE | 2016-10-13 17:43 | PCM.PNMED ---
Subjective Date of Service Oct 13, 2016 Subjective The patient was seen sitting up in the bedside chair when I entered the room. She is much more awake and alert and responsive than yesterday. She complains of still being slow and lethargic, and her sister Margot confirms this. The patient has no new complaints. Exam Vital Signs Vital Sign - Last Date Time Temp Pulse Resp B/P Pulse Ox O2 Delivery O2 Flow Rate FiO2 10/13/16 13:22 36.9 79 20 165/91 92 Room Air 10/13/16 04:34 2.00 Intake and Output 10/12/16 10/12/16 10/13/16 Cumulative From/Thru 15:00 23:00 07:00 10/12/16 08:36 - 10/13/16 05:52 Intake Total 1500 ml 1148 ml 50 ml 2698 ml Balance 1500 ml 1148 ml 50 ml 2698 ml Intake Oral 600 ml 50 ml 650 ml IV Total 1500 ml 548 ml 2048 ml # Voids 4 4 8 Exam General: Patient is in no apparent distress sitting up in a bedside chair. However she does look somewhat lethargic. HEENT: Head is atraumatic and normocephalic. Eyes: Pupils are equally round and reactive to light and accommodation. Extraocular muscles are intact. Sclera are white, anicteric. Subconjunctival mucosa is pink. Ears and nose are unremarkable. Oropharynx: There is no mucosal lesions, there is no thrush, there is no pharyngitis. Patient is edentulous. Mucosa is somewhat dry. Neck: Is supple, there are no nodes, or masses or tenderness. Chest: Is significant for upper airway congestion. Other than coarse breath sounds, especially in the left lower lobe, the lung bettencourt are clear. Heart: Rate, rhythm is regular. There is no murmur, rub or gallop. Abdomen: Good bowel sounds are present. Abdomen is soft, nontender, no organomegaly or masses were appreciated. Extremities: Are symmetrical and well perfused. There is no edema, there is no cellulitis, no rash. Neurologic: There are no focal neurological deficits. Cranial nerves II through XII are intact. There are no sensory or motor deficits. Patient exhibits some cogwheel rigidity and generalized weakness. Mentation appears slowed and she is slow to respond. She is much more lucid today and is having less difficulty with finding her words. Psychiatric: Patients mood is calm and she shows no sign of agitation. Genital: Deferred Rectal: Deferred Lab and Diagnostics Result Diagram: 10/13/1644810/13/16448 Microbiology Blood and urine cultures are pending. X-Rays, CTs and MRIs PROCEDURE: X-RAY CHEST ONE VIEW, PORTABLE ([id number]) INDICATIONS: SOB TECHNIQUE: One view of the chest was acquired. COMPARISON: [facility], CR, CHEST 1VW (PORTABLE), 05/19/2014, 18:41. FINDINGS: Surgical changes and devices: None. Lungs and pleura: The medial lung apices are partially obscured by the patient' s neck soft tissues. No pleural effusions or definite pneumothorax. Visualized lungs are clear. Mediastinum: Mediastinal contours appear unchanged. Heart size is within normal limits for technique. Bones and chest wall: No suspicious bony lesions. Overlying soft tissues appear unremarkable. IMPRESSION: 1. No definite acute cardiopulmonary disease. Dictated by: Dannie Oliveros M.D. on 10/12/2016 at 9:24 Approved by: Dannie Oliveros M.D. on 10/12/2016 at 9:24 PROCEDURE: US RENAL SONOGRAM INDICATIONS: urinary tract infection/possible hydronephrosis TECHNIQUE: Real-time scanning was performed of the kidneys and bladder, with image documentation. COMPARISON: [facility], CT, CHEST ANGIO-PE, 05/19/2014, 20:11. FINDINGS: Kidneys: Kidneys are normal in size. Right kidney measures 9.0 cm long; left kidney measures 9.9 cm long. Right renal cortical thickness is 1.2 cm; left renal cortical thickness is 1.2 cm. Renal cortical echotexture is normal. No nephrolithiasis. No suspicious solid mass lesions. There is a questionable presence of mild left hydronephrosis. Previous CT chest on 05/19/14 demonstrates only the superior pole of the left kidney with presence of low attenuation. Right exophytic cyst is present measuring 40 x 34 x 30 mm. A left exophytic focus of hypoechogenicity is present measuring 18 x 17 x 20 mm. Bladder: Pre-void bladder volume is 196 mL. Post-void residual is 196 mL. Patient was unable to void. Pre-void images demonstrate no intraluminal masses or stones. On pre-void images, neither ureteral jets are noted with color Doppler interrogation. (Of note, ureteral jets may not be detectable in up to 25% of cases due to insufficient differences in specific gravity between ureteral and bladder urine). Miscellaneous: No free pelvic fluid. IMPRESSION: 1. Exophytic renal cysts bilaterally. 2. Prominence within the renal collecting system on the left is noted suspicious for hydronephrosis. However, appearance could be also secondary to parapelvic cysts, as partial visualization on 05/19/14 exam demonstrated low attenuation within this region which could workup for chronic parapelvic cysts, but does not exclude hydronephrosis. Post void images were unable to be obtained , as patient was unable to void. Recommend followup Ultrasound or CT abdomen pelvis as recommended. Dictated by: Anat Mar M.D. on 10/13/2016 at 10:45 Approved by: Anat Mar M.D. on 10/13/2016 at 10:50 Assessment & Plan The patient is a 71-year-old white female with history of Parkinson's and frequent urinary tract infections develop increasing weakness and confusion over the last 4 days. The patient was unable to get out of bed or ambulate this morning. The patient has had urinary tract infections in the past and has had a similar presentation. However, she usually does not have fever. Her significant other are checked her temperature this morning and it was 101F. Therefore, patient was brought to [facility] emergency room for further evaluation and treatment. In the emergency department patient's temperature was 38.1C. Patient was found to be obviously confused and unable to provide significant history. Of note patient was found to be slightly hypoxic on room air was provided oxygen 2 L by nasal cannula. She is not on oxygen at home. Found to have a rattling cough and therefore chest x-ray was obtained and demonstrated no focal pneumonia or acute cardiopulmonary process. Given the patient's advanced age, fever and signs of systemic illness the patient's emergent physician felt that the patient required admission as patient met septic criteria is given an IV fluid bolus and 2 sets of blood cultures were obtained and her lactic acid was normal. She was administered Tylenol for fever and patient was started on IV ceftriaxone. Patient was then admitted to the hospitalist service for further evaluation and treatment. # Urinary tract infection with sepsis, present time of admission. Active - Check urine culture obtained in the emergency room which is still pending at this time as there was insufficient growth and is being reintubated. - Continue Rocephin pending urine culture - We will continue gentle IV hydration due to patient's age - Check serial CBCs - Renal ultrasound was ordered and showed the following: "Prominence within the renal collecting system on the left is noted suspicious for hydronephrosis. However, appearance could be also secondary to parapelvic cysts, as partial visualization on 05/19/14 exam demonstrated low attenuation within this region which could workup for chronic parapelvic cysts, but does not exclude hydronephrosis. Post void images were unable to be obtained, as patient was unable to void. Recommend followup Ultrasound or CT abdomen pelvis as recommended." Exophytic cysts were also seen bilaterally. # Parkinson's disease with exacerbation secondary to above infection, present at time of admission. Active - Altered level of consciousness with difficulty finding words secondary to infection and septicemia. - Increased weakness secondary to infection and septicemia. Continue physical therapy and occupational therapy to work with patient to increase his strength while her infection is being treated. - Increased difficulty swallowing secondary to infection and septicemia. We will continue speech therapy to work with patient, to increase her strength of swallowing while her infection is being treated. - Continue carbidopa/levodopa as taken at home - Continue Rocephin and adjust antibiotics according to culture results. # Dementia due to Parkinson's disease exacerbated by current infection with sepsis, present at the time of admission. Active - Continue Exelon - Continue Rocephin and adjust Antibiotics according to culture results # Chronic pain syndrome secondary to spinal stenosis and osteoarthritis, presence of admission. Active - Continue hydrocodone-acetaminophen when necessary - Physical therapy and occupational therapy have been consulted. # Hypothyroidism, present time of admission. Stable - Continue levothyroxine replacement as at home. - Check TSH level # Depression, present times admission. Stable - Continue to citalopram 40 mg by mouth daily - Supportive care Disposition: Patient will likely be able to be discharged in next 48- 72 hours. Pain Evaluation: Adequate Pain Control GI Prophylaxis: Not indicated VTE Prophylaxis: Sub-Q Enoxaparin VTE Mechanical Devices: Intermittant Pneumatic CD Resuscitation Status: CPR: Attempt Resuscitation Julien Reyes MD Oct 13, 2016 17:43
[2016-10-13 23:58] VITALS: BP 158/100; PULSE 107; RESP 22; O2SAT 95
[2016-10-14] MEDS: 0.9% Sodium Chloride 1,000 ML IV SCH ×2 (00:13→13:15)
--- NOTE | 2016-10-14 01:46 | NUR ---
Mentation Patient A&O and cooperative with care at beginning of shift. Noted to become more anxious/paranoid as shift progressed. Patient talking about adults/kids that she sees and hears that need protecting that aren't in facility or room. When asked where she was, patient stated she was in [place] and had lived at this house for 20+ years. Compliant with staff one minute and then becoming agitated/upset the next. Refusing vital signs intermittently during the shift. Sitter at bedside for safety. Addendum: 10/14/16 at 0429 by LISA LOMBARDO RN Calling staff names, flipping them off through the window, and trying to scratch/hit arms during care and repositioning.
[2016-10-14 04:33] VITALS: BP 162/96; PULSE 103; RESP 20; O2SAT 95
[2016-10-14] MEDS: RYTARY PO SCH ×10 (05:27→22:00)
[2016-10-14 06:01] LABS: BASOPHILS % (AUTO) 0.4 % (0-3); EOSINOPHILS % (AUTO) 1.1 % (0-5); MONOCYTES % (AUTO) 10.7 % (4-12); Mean Corpuscular Hemoglobin 30.2 pg (27.0-35.0); Mean Corpuscular Volume 93.9 fL (81-100); NEUTROPHILS % (AUTO) 69.1 % (40-74); Platelet Count 164 bil/L (150-400)
[2016-10-14 06:27] LABS: Magnesium 1.8 mg/dL (1.6-2.6)
[2016-10-14 08:08] VITALS: BP 144/85; PULSE 81; RESP 20; O2SAT 96
[2016-10-14] MEDS: Nystatin 100,000 Unit/Gm 15 Gm Powder TOPICAL SCH ×2 (09:20→19:43)
[2016-10-14] MEDS: cefTRIAXone Inj 2,000 MG in Dextrose 5% Minibag Plus 50 ML IV SCH (10:07)
[2016-10-14] MEDS: hydrOXYzine Pamoate 25 mg Capsule PO PRN ×3 (10:47→19:43)
[2016-10-14] MEDS: HYDROcodone-APAP 5-325 mg Tablet PO PRN ×2 (10:49→15:22)
--- NOTE | 2016-10-14 10:49 | NUR ---
Pain Patient reported 7/10 leg pain. 1 tab Phelan and 25mg of Vistaril given. Denies nausea. Patient q2 turn. Call light and tray table within reach. Will continue to monitor patient hourly.
--- NOTE | 2016-10-14 13:30 | PCM.PNMED ---
Subjective Date of Service Oct 14, 2016 Subjective The patient remains continue and this has not improved much since yesterday but has improved since admission. She states she feels a little lethargic today otherwise she has no new complaints. Exam Vital Signs Vital Sign - Last Date Time Temp Pulse Resp B/P Pulse Ox O2 Delivery O2 Flow Rate FiO2 10/14/16 08:08 37.0 81 20 144/85 96 Room Air 10/13/16 04:34 2.00 Intake and Output 10/13/16 10/13/16 10/14/16 Cumulative From/Thru 15:00 23:00 07:00 10/12/16 08:36 - 10/14/16 05:56 Intake Total 1015 ml 943 ml 2444 ml 7100 ml Output Total 400 ml 935 ml 1335 ml Balance 1015 ml 543 ml 1509 ml 5765 ml Intake Oral 200 ml 200 ml 1050 ml IV Total 1015 ml 743 ml 2244 ml 6050 ml Output Urine Total 400 ml 935 ml 1335 ml # Voids 1 9 # Bowel Movements 0 2 2 Exam General: Patient is in no apparent distress laying supine in bed this morning. She appears less lethargic this morning and is more lucid in my opinion and is able to carry on long conversations today, which she was not able to do yesterday or the day before. HEENT: Head is atraumatic and normocephalic. Eyes: Pupils are equally round and reactive to light and accommodation. Extraocular muscles are intact. Sclera are white, anicteric. Subconjunctival mucosa is pink. Ears and nose are unremarkable. Oropharynx: There is no mucosal lesions, there is no thrush, there is no pharyngitis. Patient is edentulous. Mucosa is somewhat dry. Neck: Is supple, there are no nodes, or masses or tenderness. Chest: Is significant for upper airway congestion. Other than coarse breath sounds, especially in the left lower lobe, the lung bettencourt are clear. Heart: Rate, rhythm is regular. There is no murmur, rub or gallop. Abdomen: Good bowel sounds are present. Abdomen is soft, nontender, no organomegaly or masses were appreciated. Extremities: Are symmetrical and well perfused. There is no edema, there is no cellulitis, no rash. Neurologic: There are no focal neurological deficits. Cranial nerves II through XII are intact. There are no sensory or motor deficits. Patient exhibits some cogwheel rigidity and generalized weakness. Mentation appears slowed and she is slow to respond. She is much more lucid today and is having less difficulty with finding her words. Psychiatric: Patients mood is calm and she shows no sign of agitation. Genital: Deferred Rectal: Deferred Lab and Diagnostics Result Diagram: 10/14/16 0500 10/14/16 0500 Microbiology Blood and urine cultures are pending. X-Rays, CTs and MRIs PROCEDURE: X-RAY CHEST ONE VIEW, PORTABLE ([id number]) INDICATIONS: SOB TECHNIQUE: One view of the chest was acquired. COMPARISON: [facility], CR, CHEST 1VW (PORTABLE), 05/19/2014, 18:41. FINDINGS: Surgical changes and devices: None. Lungs and pleura: The medial lung apices are partially obscured by the patient' s neck soft tissues. No pleural effusions or definite pneumothorax. Visualized lungs are clear. Mediastinum: Mediastinal contours appear unchanged. Heart size is within normal limits for technique. Bones and chest wall: No suspicious bony lesions. Overlying soft tissues appear unremarkable. IMPRESSION: 1. No definite acute cardiopulmonary disease. Dictated by: Dannie Oliveros M.D. on 10/12/2016 at 9:24 Approved by: Dannie Oliveros M.D. on 10/12/2016 at 9:24 PROCEDURE: US RENAL SONOGRAM INDICATIONS: urinary tract infection/possible hydronephrosis TECHNIQUE: Real-time scanning was performed of the kidneys and bladder, with image documentation. COMPARISON: [facility], CT, CHEST ANGIO-PE, 05/19/2014, 20:11. FINDINGS: Kidneys: Kidneys are normal in size. Right kidney measures 9.0 cm long; left kidney measures 9.9 cm long. Right renal cortical thickness is 1.2 cm; left renal cortical thickness is 1.2 cm. Renal cortical echotexture is normal. No nephrolithiasis. No suspicious solid mass lesions. There is a questionable presence of mild left hydronephrosis. Previous CT chest on 05/19/14 demonstrates only the superior pole of the left kidney with presence of low attenuation. Right exophytic cyst is present measuring 40 x 34 x 30 mm. A left exophytic focus of hypoechogenicity is present measuring 18 x 17 x 20 mm. Bladder: Pre-void bladder volume is 196 mL. Post-void residual is 196 mL. Patient was unable to void. Pre-void images demonstrate no intraluminal masses or stones. On pre-void images, neither ureteral jets are noted with color Doppler interrogation. (Of note, ureteral jets may not be detectable in up to 25% of cases due to insufficient differences in specific gravity between ureteral and bladder urine). Miscellaneous: No free pelvic fluid. IMPRESSION: 1. Exophytic renal cysts bilaterally. 2. Prominence within the renal collecting system on the left is noted suspicious for hydronephrosis. However, appearance could be also secondary to parapelvic cysts, as partial visualization on 05/19/14 exam demonstrated low attenuation within this region which could workup for chronic parapelvic cysts, but does not exclude hydronephrosis. Post void images were unable to be obtained , as patient was unable to void. Recommend followup Ultrasound or CT abdomen pelvis as recommended. Dictated by: Anat Mar M.D. on 10/13/2016 at 10:45 Approved by: Anat Mar M.D. on 10/13/2016 at 10:50 Assessment & Plan The patient is a 71-year-old white female with history of Parkinson's and frequent urinary tract infections develop increasing weakness and confusion over the last 4 days. The patient was unable to get out of bed or ambulate this morning. The patient has had urinary tract infections in the past and has had a similar presentation. However, she usually does not have fever. Her significant other are checked her temperature this morning and it was 101F. Therefore, patient was brought to [facility] emergency room for further evaluation and treatment. In the emergency department patient's temperature was 38.1C. Patient was found to be obviously confused and unable to provide significant history. Of note patient was found to be slightly hypoxic on room air was provided oxygen 2 L by nasal cannula. She is not on oxygen at home. Found to have a rattling cough and therefore chest x-ray was obtained and demonstrated no focal pneumonia or acute cardiopulmonary process. Given the patient's advanced age, fever and signs of systemic illness the patient's emergent physician felt that the patient required admission as patient met septic criteria is given an IV fluid bolus and 2 sets of blood cultures were obtained and her lactic acid was normal. She was administered Tylenol for fever and patient was started on IV ceftriaxone. Patient was then admitted to the hospitalist service for further evaluation and treatment. # Urinary tract infection with sepsis, present time of admission. Active - The urine culture obtained in the emergency room which shows "mixed jimena". We will ask the microbiology lab to see if there is any primary pathogens that are able to be isolated. - Continue Rocephin pending urine culture results with the lab is still working per my request. - We will continue gentle IV hydration due to patient's age - Check serial CBCs - Renal ultrasound was ordered and showed the following: "Prominence within the renal collecting system on the left is noted suspicious for hydronephrosis. However, appearance could be also secondary to parapelvic cysts, as partial visualization on 05/19/14 exam demonstrated low attenuation within this region which could workup for chronic parapelvic cysts, but does not exclude hydronephrosis. Post void images were unable to be obtained, as patient was unable to void. Recommend followup Ultrasound or CT abdomen pelvis as recommended." Exophytic cysts were also seen bilaterally. # Parkinson's disease with exacerbation secondary to above infection, present at time of admission. Active - Altered level of consciousness with difficulty finding words secondary to infection and septicemia. This has improved, however patient remains confused more than her usual baseline - Increased weakness secondary to infection and septicemia. Continue physical therapy and occupational therapy to work with patient to increase his strength while her infection is being treated. Her strength is improving - Increased difficulty swallowing secondary to infection and septicemia. We will continue speech therapy to work with patient, to increase her strength of swallowing while her infection is being treated. - Continue carbidopa/levodopa as taken at home - Continue Rocephin and adjust antibiotics according to culture results. # Dementia due to Parkinson's disease exacerbated by current infection with sepsis, present at the time of admission. Active - Continue Exelon - Continue Rocephin and adjust Antibiotics according to culture results # Chronic pain syndrome secondary to spinal stenosis and osteoarthritis, presence of admission. Active - Continue hydrocodone-acetaminophen when necessary - Physical therapy and occupational therapy have been consulted. And will continue. # Hypothyroidism, present time of admission. Stable - Continue levothyroxine replacement as at home. - TSH level is elevated at 7.18, therefore will increase levothyroxine 125 g by mouth daily. # Depression, present times admission. Stable - Continue to citalopram 40 mg by mouth daily - Supportive care Disposition: Patient will likely be able to be discharged in next 24-48 hours. Pain Evaluation: Adequate Pain Control GI Prophylaxis: Not indicated VTE Prophylaxis: Sub-Q Enoxaparin VTE Mechanical Devices: Intermittant Pneumatic CD Resuscitation Status: CPR: Attempt Resuscitation Julien Reyes MD Oct 14, 2016 13:30
--- NOTE | 2016-10-14 14:22 | NUR ---
Social Work- Continued D/C Planning/ Multi-Disciplinary Rounds Data: EMR reviewed. Pt is on day 2 of hospitalization. Per multi-disciplinary rounds, pt will likely discharge tomorrow on PO abx. PT recommends HH PT 3x week. ST recommends outpt but pt is homebound and her partner does not drive. UR RN recommends HHST. agreeable. states that pt will require HHPT 3 x week for [address] 2x week for 4 weeks through HH. SW requested HH orders. At this time, no HH orders have been received. text paged and notified of this. Pt's partner Margot requested that STRIP CATCHER speak with pt and herself regarding DPOA and discharge plan. Margot states that she has POA for everything other than healthcare and pt would like to pursue healthcare POA. SW provided and explained paperwork, including 2 witness or notary requirement. SW also explained that pt must be competent to sign a paper like this. Pt was able to identify her location, her date of , the president, and the year, though she could not remember the name of the hospital at bedside when STRIP CATCHER assessed. Pt struggled to identify her age, though eventually she stated 71. BRAULIO also spoke with pt and pt's spouse regarding needs at discharge. They are interested in obtaining a hospital bed. SW explained medical necessity requirement and encouraged them to speak with their [facility] case management specialist Vanessa Knowles, rent one through a company like [employer] for approximately $150-$180 per month, or buy one secondhand online. They also requested a BSC, which SW encouraged them to purchase one through [employer] or [employer] as these are not covered by insurance. Both are agreeable. Pt's partner Margot spoke about PT recommendations of HHPT. BRAULIO explained the requirement for a doctor's order, but assured her it was discussed in rounds and STRIP CATCHER would be following up regarding this issue. Margot requested that [facility] be used, as pt has had this in the past and liked the services. SW agreeable. Pt anticipated to discharge home with HH PT and ST services, pending orders and referral. F2F will be placed in hard chart and flagged. Pt will likely require [facility] wheelchair van transportation home. SW will continue to follow. Assessment: Pt who will likely require HH services at discharge. orders obtained. Plan: Pt anticipated to discharge home with HH PT and ST services, pending orders and referral. F2F will be placed in hard chart and flagged. Pt will likely require [facility] wheelchair van transportation home. SW will continue to follow. LAURA Ambriz
[2016-10-14 16:39] VITALS: BP 152/98; PULSE 78; RESP 20; O2SAT 95
[2016-10-14 20:27] VITALS: BP 164/93; PULSE 77; RESP 20; O2SAT 94
--- NOTE | 2016-10-14 23:05 | NUR ---
Mentation/Medication Rytary 23.75-95 mg and Rytary 61.25-245 mg off schedule. 1800 dose given late on this shift. When given, patient was alert, pleasant, and cooperative with care. 2200 dose of both Rytarys were to be given @ 2300. Around 2230, patient became agitated with staff, unsure of where she was, and trying to leave the facility to [facility]". Patient eventually directed back into bed by two staff members, but refused medication. Remains disoriented and agitated with staff at this time.
[2016-10-15] MEDS: 0.9% Sodium Chloride 1,000 ML IV SCH ×2 (00:43→13:49)
--- NOTE | 2016-10-15 05:22 | NUR ---
Behavior At this time PT refused morning vitals, stated: "Wants to be left alone." Asked pt if she needed to use BSC, pt stated "please, get out of my room." RN-aware of behavior. Will attempt again before AM shift (0630) & will pass along "IF" pt refuse care X2.
[2016-10-15 05:38] LABS: BASOPHILS % (AUTO) 0.4 % (0-3); EOSINOPHILS % (AUTO) 0.5 % (0-5); MONOCYTES % (AUTO) 9.3 % (4-12); Mean Corpuscular Hemoglobin 30.3 pg (27.0-35.0); Mean Corpuscular Volume 93.9 fL (81-100); NEUTROPHILS % (AUTO) 73.4 % (40-74); Platelet Count 179 bil/L (150-400)
[2016-10-15 05:54] VITALS: BP 165/98; PULSE 94; RESP 18; O2SAT 91
[2016-10-15] MEDS: RYTARY PO SCH ×10 (05:57→21:30)
[2016-10-15 06:01] LABS: Magnesium 1.7 mg/dL (1.6-2.6)
--- NOTE | 2016-10-15 06:14 | NUR ---
Behavior/Pt care Re-approach pt to assist with toileting, pt ref & got more agitated when asked multiple times. RN approached pt while given AM meds, offered to toilet, pt refused stated "I'm OK for now, I'm too tired to do anything ([id number]). RN - aware. Will assist with AM [employer] to change or assist to BSC.
[2016-10-15] MEDS: Nystatin 100,000 Unit/Gm 15 Gm Powder TOPICAL SCH ×2 (07:56→21:07)
[2016-10-15] MEDS ORDERED: Magnesium Sulf 2 Gm/50mL Water 2 GM in IV Premix 1 EACH IV ONE (08:45)
--- NOTE | 2016-10-15 10:00 | NUR ---
Activity Patient able to walk to BSC/chair with one assist. Stable on feet, requires lots of direction.
[2016-10-15] MEDS: cefTRIAXone Inj 2,000 MG in Dextrose 5% Minibag Plus 50 ML IV SCH (10:01)
[2016-10-15 12:00] VITALS: BP 160/88; PULSE 88; RESP 19; O2SAT 93
--- NOTE | 2016-10-15 12:00 | NUR ---
Social Work- Continued D/C Planning/Multi-Disciplinary Rounds Data: EMR reviewed. Pt is on day 3 of hospitalization for Fever, AMS per H&P. Per multi-disciplinary rounds, pt is likely to discharge home today or tomorrow. PT continues to work with pt. SW acknowledges HHPT 3x weekly and ST 2x weekly for 4 weeks. Pt and Margot requested yesterday that if HH were indicated then [facility] would be the preference. BRAULIO received T/C from Fatuma confirming acceptance of pt onto service on or Thursday pending discharge. ST would likely be able to see pt prior to PT. F2F completed by and faxed to [facility]. Copy placed in hard chart. Original to be given to Fatuma, [facility] liaison. PT worked with pt this AM and pt completed Sit to stand w/FWW x 2; 1st attempt Indira, 2nd attempt ModA. Ambw/FWW in room 2 x 15ft CGA with breif seated rest on EOB; Pt became anxious while ambulating. Pt returned to bed w/MaxA after PERCUSSION INSTRUCTOR allowed pt time to strategize, pt unable despite VC/TC. Rec d/c to SNF to increase functional mobility. If pt is to return home will require 24/7 care and HHPT 3x per week. Transport via CAB or POV. PT notified MANAGER SKILLED of this and also notified MD of change in condition. In prior assessments, pt was able to ambulate 80 feet with fww. PT confirmed that pt would be a suitable rehab candidate from a teaching perspective despite her memory issues. MANAGER SKILLED spoke with pt and partner Margot regarding discharge plan. Margot expressed concerns about assisting pt at home and getting her from the bed to the BSC at home. Pt was alert and oriented x3 during this conversation. Pt seemed off, stating odd things to partner Margot like "I think we have some personal things to discuss" and speaking cryptically. Margot was perplexed by this as well. Of note, pt had a difficult night last night and became very confused. SW discussed the requirement of a doctors order prior to SNF arrangement. Margot and pt agreeable to conversation with . SW also discussed participation in PT at a SNF and willingness to live there temporarily during rehabilitation. Pt wanted to tour all the facilities prior to admission and MANAGER SKILLED explained that it would not be possible but Margot or other family/friends would be able to tour on pt's behalf. SW asked pt directly if going to a SNF is something that she would even be willing to do with a doctors orders and pt was not able to definitively answer. SW stated that MD will speak with them prior to making any decisions. Pt and Margot notified that Pt's HHPT and ST are set up and would be able to come out to her home tomorrow or Thursday (depending on discharge). Margot confirmed that pt's [facility] caregivers are available 5 days per week for 4 hours , , , 2 hours on Thu, and 8 hours on Thursday. T/C to KAREN Knowles regarding pt's hospitalization and change in condition. Vanessa states that she would be able to do an ADL assessment due to pt's change in condition and potentially increase pt's hours. Vanessa prefers that these assessments are completed at home because they are generally more accurate but she is able to do them in the hospital as well. T/C with MD regarding change in condition and discharge plan. states he will speak with pt and partner today regarding pt's medical course as well as other factors contributing to her change in condition (lack of sleep, strange environment, etc). MD aware the pt could receive CORNELIUS re-assessment at discharge and potentially increase caregiving hours. MD also aware that HHPT and ST are set up and the opening dates. BRAULIO requested that MD call MANAGER SKILLED after he speaks with pt and family so that MANAGER SKILLED can facilitate necessary discharge plan. MD agreeable. Assessment: Pt who has experienced a change in condition and may require SNF Plan: SW awaiting MD phone call regarding discharge plan due to pt's change in condition. PT and ST is coordinated. It is unclear if pt will even be agreeable to go to a SNF. SW will continue to follow. LAURA Ambriz Addendum: 10/15/16 at 1542 by TK MORRISON T/C from regarding pt's discharge. MD has not seen pt yet and is going to speak with her family about returning home vs. SNF as MD feels that pt will not do well in a SNF secondary to the confusion she has been experiencing here at the hospital. MD states that he will speak with pt and family today and pt will discharge tomorrow. MANAGER SKILLED updated Fatuma at [facility] who states that they will be able to open for services either Thursday or Thursday. T/C to KAREN Knowles regarding potential re-assessment of pt's CORNELIUS hours when she returns from the hospital. Left message for Vanessa regarding this and will call in the AM as well. Jane Morrison, MANAGER SKILLED
[2016-10-15] MEDS ORDERED: Potassium Chloride 20 mEq SR Tablet PO ONE (15:50)
[2016-10-15 19:45] VITALS: BP 139/103; PULSE 120; RESP 18; O2SAT 95
--- NOTE | 2016-10-15 21:28 | PCM.PNMED ---
Subjective Date of Service Oct 15, 2016 Subjective The patient plans of increased weakness today. She has difficulty even getting out of bed with a walker and transferring to a bedside commode. I watched her do this for almost 20 minutes and she required significant amount of assistance from the CROP ROLLER. The patient did not do nearly as well as physical therapy today as she did yesterday. Patient states she did not sleep much last night she was having some hallucinations. She has no other new complaints. Exam Vital Signs Vital Sign - Last Date Time Temp Pulse Resp B/P Pulse Ox O2 Delivery O2 Flow Rate FiO2 10/15/16 12:00 36.9 88 19 160/88 93 Room Air 10/13/16 04:34 2.00 Intake and Output 10/14/16 10/14/16 10/15/16 Cumulative From/Thru 15:00 23:00 07:00 10/12/16 08:36 - 10/15/16 06:53 Intake Total 1501 ml 1169 ml 9770 ml Output Total 800 ml 900 ml 3035 ml Balance 701 ml 269 ml 6735 ml Intake Oral 400 ml 270 ml 1720 ml IV Total 1101 ml 899 ml 8050 ml Output Urine Total 400 ml 900 ml 2635 ml Urine/Stool Mix 400 ml 400 ml # Voids 2 1 12 # Bowel Movements 2 1 5 Exam General: Patient is in no apparent distress laying supine in bed this morning. She appears more lucid today, however much weaker. HEENT: Head is atraumatic and normocephalic. Eyes: Pupils are equally round and reactive to light and accommodation. Extraocular muscles are intact. Sclera are white, anicteric. Subconjunctival mucosa is pink. Ears and nose are unremarkable. Oropharynx: There is no mucosal lesions, there is no thrush, there is no pharyngitis. Patient is edentulous. Mucosa is somewhat dry. Neck: Is supple, there are no nodes, or masses or tenderness. Chest: Is significant for upper airway congestion. The lungs are much clearer today. Heart: Rate, rhythm is regular. There is no murmur, rub or gallop. Abdomen: Good bowel sounds are present. Abdomen is soft, nontender, no organomegaly or masses were appreciated. Extremities: Are symmetrical and well perfused. There is no edema, there is no cellulitis, no rash. Neurologic: There are no focal neurological deficits. Cranial nerves II through XII are intact. There are no sensory or motor deficits. Patient exhibits some cogwheel rigidity and generalized weakness which is worse today than yesterday. Mentation is improved and she is less slow to respond. She used to be more lucid and is having less difficulty with finding her words. Psychiatric: Patients mood is calm and she shows no sign of agitation. Genital: Deferred Rectal: Deferred Lab and Diagnostics Result Diagram: 10/15/1645110/15/16451 Microbiology Blood and urine cultures are pending. X-Rays, CTs and MRIs PROCEDURE: X-RAY CHEST ONE VIEW, PORTABLE ([id number]) INDICATIONS: SOB TECHNIQUE: One view of the chest was acquired. COMPARISON: [facility], CR, CHEST 1VW (PORTABLE), 05/19/2014, 18:41. FINDINGS: Surgical changes and devices: None. Lungs and pleura: The medial lung apices are partially obscured by the patient' s neck soft tissues. No pleural effusions or definite pneumothorax. Visualized lungs are clear. Mediastinum: Mediastinal contours appear unchanged. Heart size is within normal limits for technique. Bones and chest wall: No suspicious bony lesions. Overlying soft tissues appear unremarkable. IMPRESSION: 1. No definite acute cardiopulmonary disease. Dictated by: Dannie Oliveros M.D. on 10/12/2016 at 9:24 Approved by: Dannie Oliveros M.D. on 10/12/2016 at 9:24 PROCEDURE: US RENAL SONOGRAM INDICATIONS: urinary tract infection/possible hydronephrosis TECHNIQUE: Real-time scanning was performed of the kidneys and bladder, with image documentation. COMPARISON: [facility], CT, CHEST ANGIO-PE, 05/19/2014, 20:11. FINDINGS: Kidneys: Kidneys are normal in size. Right kidney measures 9.0 cm long; left kidney measures 9.9 cm long. Right renal cortical thickness is 1.2 cm; left renal cortical thickness is 1.2 cm. Renal cortical echotexture is normal. No nephrolithiasis. No suspicious solid mass lesions. There is a questionable presence of mild left hydronephrosis. Previous CT chest on 05/19/14 demonstrates only the superior pole of the left kidney with presence of low attenuation. Right exophytic cyst is present measuring 40 x 34 x 30 mm. A left exophytic focus of hypoechogenicity is present measuring 18 x 17 x 20 mm. Bladder: Pre-void bladder volume is 196 mL. Post-void residual is 196 mL. Patient was unable to void. Pre-void images demonstrate no intraluminal masses or stones. On pre-void images, neither ureteral jets are noted with color Doppler interrogation. (Of note, ureteral jets may not be detectable in up to 25% of cases due to insufficient differences in specific gravity between ureteral and bladder urine). Miscellaneous: No free pelvic fluid. IMPRESSION: 1. Exophytic renal cysts bilaterally. 2. Prominence within the renal collecting system on the left is noted suspicious for hydronephrosis. However, appearance could be also secondary to parapelvic cysts, as partial visualization on 05/19/14 exam demonstrated low attenuation within this region which could workup for chronic parapelvic cysts, but does not exclude hydronephrosis. Post void images were unable to be obtained , as patient was unable to void. Recommend followup Ultrasound or CT abdomen pelvis as recommended. Dictated by: Anat Mar M.D. on 10/13/2016 at 10:45 Approved by: Anat Mar M.D. on 10/13/2016 at 10:50 Assessment & Plan The patient is a 71-year-old white female with history of Parkinson's and frequent urinary tract infections develop increasing weakness and confusion over the last 4 days. The patient was unable to get out of bed or ambulate this morning. The patient has had urinary tract infections in the past and has had a similar presentation. However, she usually does not have fever. Her significant other are checked her temperature this morning and it was 101F. Therefore, patient was brought to [facility] emergency room for further evaluation and treatment. In the emergency department patient's temperature was 38.1C. Patient was found to be obviously confused and unable to provide significant history. Of note patient was found to be slightly hypoxic on room air was provided oxygen 2 L by nasal cannula. She is not on oxygen at home. Found to have a rattling cough and therefore chest x-ray was obtained and demonstrated no focal pneumonia or acute cardiopulmonary process. Given the patient's advanced age, fever and signs of systemic illness the patient's emergent physician felt that the patient required admission as patient met septic criteria is given an IV fluid bolus and 2 sets of blood cultures were obtained and her lactic acid was normal. She was administered Tylenol for fever and patient was started on IV ceftriaxone. Patient was then admitted to the hospitalist service for further evaluation and treatment. # Urinary tract infection with sepsis, present time of admission. Active - The urine culture obtained in the emergency room which shows "mixed jimena". We asked the microbiology lab to see if there is any primary pathogens that are able to be isolated. They have isolated Streptococcus bovis. - Continue Rocephin.. - We will continue gentle IV hydration due to patient's age - Check serial CBCs - Renal ultrasound was ordered and showed the following: "Prominence within the renal collecting system on the left is noted suspicious for hydronephrosis. However, appearance could be also secondary to parapelvic cysts, as partial visualization on 05/19/14 exam demonstrated low attenuation within this region which could workup for chronic parapelvic cysts, but does not exclude hydronephrosis. Post void images were unable to be obtained, as patient was unable to void. Recommend followup Ultrasound or CT abdomen pelvis as recommended." Exophytic cysts were also seen bilaterally. # Parkinson's disease with exacerbation secondary to above infection, present at time of admission. Active - Altered level of consciousness with difficulty finding words secondary to infection and septicemia. 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 - Increased weakness secondary to infection and septicemia. Continue physical therapy and occupational therapy to work with patient to increase his strength while her infection is being treated. Patient was much weaker today possibly because she did not sleep well last night due to the sundowner's syndrome - Increased difficulty swallowing secondary to infection and septicemia improved. We will continue speech therapy to work with patient, to increase her strength of swallowing while her infection is being treated. - Continue carbidopa/levodopa as taken at home - Continue Rocephin and adjust antibiotics according to culture results. # Dementia due to Parkinson's disease exacerbated by current infection with sepsis, present at the time of admission. Active - Continue Exelon - Continue Rocephin. # Chronic pain syndrome secondary to spinal stenosis and osteoarthritis, presence of admission. Active - Continue hydrocodone-acetaminophen when necessary - Physical therapy and occupational therapy have been consulted. And will continue. # Hypothyroidism, present time of admission. Stable - Continue levothyroxine replacement as at home. - TSH level is elevated at 7.18, therefore will increase levothyroxine 125 g by mouth daily. # Depression, present times admission. Stable - Continue to citalopram 40 mg by mouth daily - Supportive care Disposition: Patient will likely be able to be discharged in next 24-48 hours. Pain Evaluation: Adequate Pain Control GI Prophylaxis: Not indicated VTE Prophylaxis: Sub-Q Enoxaparin VTE Mechanical Devices: Intermittant Pneumatic CD Resuscitation Status: CPR: Attempt Resuscitation Julien Reyes MD Oct 15, 2016 21:28
[2016-10-16 00:11] VITALS: BP 148/82; PULSE 82; RESP 17; O2SAT 94
[2016-10-16] MEDS: 0.9% Sodium Chloride 1,000 ML IV SCH (00:38)
[2016-10-16] MEDS: hydrOXYzine Pamoate 25 mg Capsule PO PRN (02:10)
--- NOTE | 2016-10-16 03:06 | NUR ---
Mentation/ Restlessness This evening patient presented with some confusion as well as agitation towards staff. As night has progressed agitation towards staff has improved but patient remained restless. PRN Vistaril PO given for restlessness. Upon further reassessment patient is still awake but appears comfortable and restlessness has improved. 1:1 sitter outside of room. Will continue to monitor and continue Q1 hour checks.
[2016-10-16 05:30] LABS: BASOPHILS % (AUTO) 0.5 % (0-3); EOSINOPHILS % (AUTO) 2.1 % (0-5); Mean Corpuscular Hemoglobin 30.1 pg (27.0-35.0); Mean Corpuscular Volume 93.9 fL (81-100); NEUTROPHILS % (AUTO) 60.7 % (40-74); Platelet Count 189 bil/L (150-400)
[2016-10-16] MEDS: RYTARY PO SCH ×6 (05:49→13:51)
[2016-10-16 05:56] LABS: Magnesium 2.1 mg/dL (1.6-2.6)
[2016-10-16 05:59] VITALS: BP 157/85; PULSE 90; RESP 17; O2SAT 96
[2016-10-16] MEDS: Nystatin 100,000 Unit/Gm 15 Gm Powder TOPICAL SCH (08:24)
[2016-10-16] MEDS ORDERED: 0.9% NaCl + KCl 20 mEq/L 1,000 ML IV SCH (08:25)
[2016-10-16] MEDS ORDERED: Potassium Chloride 20 mEq SR Tablet PO SCH (08:30)
[2016-10-16] MEDS: cefTRIAXone Inj 2,000 MG in Dextrose 5% Minibag Plus 50 ML IV SCH (10:15)
--- NOTE | 2016-10-16 12:59 | PCM.DIMED ---
Discharge Instructions Date of Service Oct 16, 2016 Dates of Hospitalization Oct 12, 2016 at 10:16 Discharge Diagnosis Discharge Diagnosis UTI with Strep bovis Diet Discharge Diet: No restrictions Activity Discharge Activity: No restrictions Call your provider Call your provider for: Fever or Chills, Shortness of breath, Bleeding, Chest pain, Vomitting, Excessive diarrhea, Weakness (unilateral), Other Patient Instructions Follow-up Provider: [facility] Follow-up with PCP in: 1 week (Dr. Gutierrez) Julien Reyes MD Oct 16, 2016 12:59
[2016-10-16] MEDS ORDERED: AMOX500T2 PO (13:06)
--- NOTE | 2016-10-16 13:18 | NUR ---
Social Work- Discharge/Multi-Disciplinary Rounds Data: EMR reviewed. Pt is on day 4 of hospitalization for Fever, AMS. Per multi-disciplinary rounds, it was unknown if pt would require HH or SNF at discharge. MD will update PACKING MACHINE CAN FEEDER. MD updated PACKING MACHINE CAN FEEDER regarding pt's condition. Pt improved markedly with PT and was able to ambulate 100 feet. MD discussed with pt and SO about returning home and all are agreeable. Per MD, pt is medically ready for discharge today. Discharge orders are active. SW spoke with pt and SO Margot at bedside regarding discharge plan. Pt and SO will require [facility] transportation home. ROAD MACHINE RUNNER faxed request for 1430, notifying [facility] that pt will require a wheelchair and will require a pharmacy stop prior to returning home. BRAULIO requested that RN call in patient's Rx to [facility] in [place] (preferred pharmacy) so that it would be ready when pt arrives to pick it up. RN agreeable. RN aware that pt will discharge via [facility] transport at 1430. ordered PCP appointment to be made for 1 week. KALLIE made PCP appointment 2:15pm Thursday10/22/16 for a 2:[address] Sarah Chávez (Dr. Gutierrez had no openings). Pt and SO agreeable to this appointment. T/C to [facility] regarding pt's discharge. [facility] will open within 48 hours. Fatuma confirmed that she has pt's F2F and everything is set up. T/C to Vanessa Knowles at [facility] regarding pt's discharge. SW left message recommending that Vanessa follow up with pt and re-assess for more caregiving hours when pt returns home. Pt to discharge home with [facility], transport via [facility] transport at 1430. No additional SW needs identified Assessment: Pt for whom [facility] and [facility] is medically necessary Plan: Pt to discharge home with [facility], transport via [facility] transport at 1430. No additional SW needs identified Jane Hernandez, PACKING MACHINE CAN FEEDER
--- NOTE | 2016-10-16 13:20 | NUR ---
Faxed [facility] form to [facility] and requested 1430 pickling grader. Put [facility] cell # on sheet for follow up regarding actual time of pickling grader.
--- NOTE | 2016-10-16 15:31 | NUR ---
Care Took over care at 1500.
--- NOTE | 2016-10-17 00:09 | PCM.DC.MED ---
Discharge Summary Date of Service Oct 16, 2016 Dates of Hospitalization Date of Hospital Admission Oct 12, 2016 at 10:16 Date of Discharge: Oct 16, 2016 Providers: Admitting Physician: Julien Reyes MD Primary Care Physician: Albert,[facility] Residency Attending Physician: Julien Reyes MD Diagnosis at Time of Discharge Diagnosis at Time of Discharge UTI with Strep bovis Procedures XRay, CTs & MRIs PROCEDURE: X-RAY CHEST ONE VIEW, PORTABLE ([id number]) INDICATIONS: SOB TECHNIQUE: One view of the chest was acquired. COMPARISON: [facility], CR, CHEST 1VW (PORTABLE), 05/19/2014, 18:41. FINDINGS: Surgical changes and devices: None. Lungs and pleura: The medial lung apices are partially obscured by the patient' s neck soft tissues. No pleural effusions or definite pneumothorax. Visualized lungs are clear. Mediastinum: Mediastinal contours appear unchanged. Heart size is within normal limits for technique. Bones and chest wall: No suspicious bony lesions. Overlying soft tissues appear unremarkable. IMPRESSION: 1. No definite acute cardiopulmonary disease. Dictated by: Dannie Oliveros M.D. on 10/12/2016 at 9:24 Approved by: Dannie Oliveros M.D. on 10/12/2016 at 9:24 PROCEDURE: US RENAL SONOGRAM INDICATIONS: urinary tract infection/possible hydronephrosis TECHNIQUE: Real-time scanning was performed of the kidneys and bladder, with image documentation. COMPARISON: [facility], CT, CHEST ANGIO-PE, 05/19/2014, 20:11. FINDINGS: Kidneys: Kidneys are normal in size. Right kidney measures 9.0 cm long; left kidney measures 9.9 cm long. Right renal cortical thickness is 1.2 cm; left renal cortical thickness is 1.2 cm. Renal cortical echotexture is normal. No nephrolithiasis. No suspicious solid mass lesions. There is a questionable presence of mild left hydronephrosis. Previous CT chest on 05/19/14 demonstrates only the superior pole of the left kidney with presence of low attenuation. Right exophytic cyst is present measuring 40 x 34 x 30 mm. A left exophytic focus of hypoechogenicity is present measuring 18 x 17 x 20 mm. Bladder: Pre-void bladder volume is 196 mL. Post-void residual is 196 mL. Patient was unable to void. Pre-void images demonstrate no intraluminal masses or stones. On pre-void images, neither ureteral jets are noted with color Doppler interrogation. (Of note, ureteral jets may not be detectable in up to 25% of cases due to insufficient differences in specific gravity between ureteral and bladder urine). Miscellaneous: No free pelvic fluid. IMPRESSION: 1. Exophytic renal cysts bilaterally. 2. Prominence within the renal collecting system on the left is noted suspicious for hydronephrosis. However, appearance could be also secondary to parapelvic cysts, as partial visualization on 05/19/14 exam demonstrated low attenuation within this region which could workup for chronic parapelvic cysts, but does not exclude hydronephrosis. Post void images were unable to be obtained , as patient was unable to void. Recommend followup Ultrasound or CT abdomen pelvis as recommended. Dictated by: Anat Mar M.D. on 10/13/2016 at 10:45 Approved by: Anat Mar M.D. on 10/13/2016 at 10:50 Brief History The patient is a 71-year-old white female with history of Parkinson's and frequent urinary tract infections develop increasing weakness and confusion over the last 4 days. The patient was unable to get out of bed or ambulate this morning. The patient has had urinary tract infections in the past and has had a similar presentation. However, she usually does not have fever. Her significant other are checked her temperature this morning and it was 101F. Therefore, patient was brought to [facility] emergency room for further evaluation and treatment. In the emergency department patient's temperature was 38.1C. Patient was found to be obviously confused and unable to provide significant history. Of note patient was found to be slightly hypoxic on room air was provided oxygen 2 L by nasal cannula. She is not on oxygen at home. Found to have a rattling cough and therefore chest x-ray was obtained and demonstrated no focal pneumonia or acute cardiopulmonary process. Given the patient's advanced age, fever and signs of systemic illness the patient's emergent physician felt that the patient required admission as patient met septic criteria is given an IV fluid bolus and 2 sets of blood cultures were obtained and her lactic acid was normal. She was administered Tylenol for fever and patient was started on IV ceftriaxone. Patient was then admitted to the hospitalist service for further evaluation and treatment. Hospital Course The patient is a 71-year-old white female with history of Parkinson's and frequent urinary tract infections develop increasing weakness and confusion over the last 4 days. The patient was unable to get out of bed or ambulate this morning. The patient has had urinary tract infections in the past and has had a similar presentation. However, she usually does not have fever. Her significant other are checked her temperature this morning and it was 101F. Therefore, patient was brought to [facility] emergency room for further evaluation and treatment. In the emergency department patient's temperature was 38.1C. Patient was found to be obviously confused and unable to provide significant history. Of note patient was found to be slightly hypoxic on room air was provided oxygen 2 L by nasal cannula. She is not on oxygen at home. Found to have a rattling cough and therefore chest x-ray was obtained and demonstrated no focal pneumonia or acute cardiopulmonary process. Given the patient's advanced age, fever and signs of systemic illness the patient's emergent physician felt that the patient required admission as patient met septic criteria is given an IV fluid bolus and 2 sets of blood cultures were obtained and her lactic acid was normal. She was administered Tylenol for fever and patient was started on IV ceftriaxone. Patient was then admitted to the hospitalist service for further evaluation and treatment. # Urinary tract infection with sepsis, present time of admission. Active - The urine culture obtained in the emergency room which shows "mixed jimena". We asked the microbiology lab to see if there is any primary pathogens that are able to be isolated. They have isolated Streptococcus bovis. - We continued Rocephin while inpatient and will discharge home on amoxicillin 500 mg by mouth 3 times a day for another 10 days to complete 14 days of therapy.. - We continued gentle IV hydration during the hospitalization due to patient's age - We checked serial CBCs - Renal ultrasound was ordered and showed the following: "Prominence within the renal collecting system on the left is noted suspicious for hydronephrosis. However, appearance could be also secondary to parapelvic cysts, as partial visualization on 05/19/14 exam demonstrated low attenuation within this region which could workup for chronic parapelvic cysts, but does not exclude hydronephrosis. Post void images were unable to be obtained, as patient was unable to void. Recommend followup Ultrasound or CT abdomen pelvis as recommended." Exophytic cysts were also seen bilaterally. Consider follow-up with her her urologist. # Parkinson's disease with exacerbation secondary to above infection, present at time of admission. Active - Altered level of consciousness with difficulty finding words secondary to infection and septicemia. 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 - Increased weakness secondary to infection and septicemia. Continue physical therapy and occupational therapy to work with patient to increase his strength while her infection is being treated. Patient was much weaker today possibly because she did not sleep well last night due to the sundowner's syndrome - Increased difficulty swallowing secondary to infection and septicemia improved. We will continue speech therapy to work with patient, to increase her strength of swallowing while her infection is being treated. - Continue carbidopa/levodopa as taken at home - Continue Rocephin and adjust antibiotics according to culture results. # Dementia due to Parkinson's disease exacerbated by current infection with sepsis, present at the time of admission. Active - Continue Exelon - We continued Rocephin while inpatient. # Chronic pain syndrome secondary to spinal stenosis and osteoarthritis, presence of admission. Active - Continue hydrocodone-acetaminophen when necessary - Physical therapy and occupational therapy have been consulted. And will continue. # Hypothyroidism, present time of admission. Stable - Continue levothyroxine replacement as at home. - TSH level is elevated at 7.18, therefore will increase levothyroxine 125 g by mouth daily. # Depression, present times admission. Stable - Continue to citalopram 40 mg by mouth daily - Supportive care Disposition: Patient was able to ambulate over 120 feet today and is ready to take another walk. Therefore she will be discharged home today with her significant other Margot. Exam Vital Signs (Last) Date Time Temp Pulse Resp B/P Pulse Ox O2 Delivery O2 Flow Rate FiO2 10/16/16 12:51 Room Air 10/16/16 05:59 36.5 90 17 157/85 96 10/13/16 04:34 2.00 Exam General: Patient is in no apparent distress laying supine in bed this morning. She appears more lucid today, however much weaker. HEENT: Head is atraumatic and normocephalic. Eyes: Pupils are equally round and reactive to light and accommodation. Extraocular muscles are intact. Sclera are white, anicteric. Subconjunctival mucosa is pink. Ears and nose are unremarkable. Oropharynx: There is no mucosal lesions, there is no thrush, there is no pharyngitis. Patient is edentulous. Mucosa is somewhat dry. Neck: Is supple, there are no nodes, or masses or tenderness. Chest: Is significant for upper airway congestion. The lungs are much clearer today. Heart: Rate, rhythm is regular. There is no murmur, rub or gallop. Abdomen: Good bowel sounds are present. Abdomen is soft, nontender, no organomegaly or masses were appreciated. Extremities: Are symmetrical and well perfused. There is no edema, there is no cellulitis, no rash. Neurologic: There are no focal neurological deficits. Cranial nerves II through XII are intact. There are no sensory or motor deficits. Patient exhibits some cogwheel rigidity and generalized weakness which is worse today than yesterday. Mentation is improved and she is less slow to respond. She used to be more lucid and is having less difficulty with finding her words. Psychiatric: Patients mood is calm and she shows no sign of agitation. Genital: Deferred Rectal: Deferred Test 10/12/16 08:40 10/12/16 09:00 10/12/16 09:01 10/13/16 04:49 Troponin T 0.010ug/L (0.0-0.011) Pro-B-Type Natriuretic Peptide 785.1pg/mL (0-301) Lactic Acid Level 0.7mmol/L (0.4-2.0) Urine Color Yellow (YELLOW) Urine Appearance Hazy (CLEAR,HAZY) Urine pH 6.5 (5.0-8.0) Urine Specific [place] 1.010 (1.003-1.035) Urine Protein Negativemg/dL (NEG,TRACE) Urine Glucose (UA) Negativemg/dL (NEGATIVE) Urine Ketones Negativemg/dL (NEGATIVE) Urine Occult Blood Negative (NEGATIVE) Urine Nitrite Negative (NEGATIVE) Urine Bilirubin Negative (NEGATIVE) Urine Urobilinogen Normalmg/dL (NORMAL) Urine Leukocyte Esterase Small (NEGATIVE) Urine RBC 0-2/hpf (0-2) Urine WBC 11-50/hpf (0-5) Urine Epithelial Cells Occasional/hpf (NONE-MOD) Urine Crystals None seen (NONE SEEN) Urine Bacteria Many/hpf (NONE-FEW) Urine Hyaline Casts None/lpf (NONE) Urine Granular Casts None seen (NONE SEEN) Urine Waxy Casts None seen (NONE SEEN) Urine Red Blood Cell Casts None seen (NONE SEEN) Urine White Blood Cell Casts None seen (NONE SEEN) Urine Mucus None seen (None Seen) Urine Trichomonas None seen (NONE SEEN) Urine Yeast None (NONE SEEN) Urinalysis Comment None Urine Culture Reflexed Indicated Thyroid Stimulating Hormone (TSH) 7.180uIU/mL (0.450-4.500) Test 10/16/16 05:00 White Blood Count 6.3th/mm3 (3.8-10.1) Red Blood Count 4.12mil/mm3 (3.90-5.20) Hemoglobin 12.4g/dL (12.0-15.6) Hematocrit 38.7% (35.0-46.0) Mean Corpuscular Volume 93.9fL (81-100) Mean Corpuscular Hemoglobin 30.1pg (27.0-35.0) Mean Corpuscular Hemoglobin Concent 32.0% (32.0-37.0) Red Cell Distribution Width 15.1% (12.3-15.4) Platelet Count 189bil/L (150-400) Neutrophils (%) (Auto) 60.7% (40-74) Lymphocytes (%) (Auto) 24.4% (14-46) Monocytes (%) (Auto) 12.0% (4-12) Eosinophils (%) (Auto) 2.1% (0-5) Basophils (%) (Auto) 0.5% (0-3) Sodium Level 146mEq/L (134-144) Potassium Level 3.3mEq/L (3.5-5.2) Chloride Level 110mEq/L (97-108) Carbon Dioxide Level 21mmol/L (18-29) Blood Urea Nitrogen 10mg/dL (8-27) Creatinine 0.84mg/dL (0.57-1.00) Estimat Glomerular Filtration Rate 96mL/min (>59) Glucose Level 80mg/dL (60-99) Calcium Level 7.1mg/dL (8.5-10.1) Magnesium Level 2.1mg/dL (1.6-2.6) Total Bilirubin 0.3mg/dL (0.0-1.2) Aspartate Amino Transf (AST/SGOT) 20U/L (0-50) Alanine Aminotransferase (ALT/SGPT) 5U/L (0-32) Alkaline Phosphatase 57U/L (25-165) Total Protein 5.8g/dL (6.4-8.4) Albumin 3.3g/dL (3.4-5.0) Microbiology Results Blood and urine cultures are pending. Discharge Medications Discharge Medications Amoxicillin (Amoxicillin) 500 Mg Tablet 500 MG PO TID Prescribed by: MARYBEL REYES MD Carbidopa/Levodopa (Rytary ER 61.25 mg-245 mg Cap) 61.25 Mg-245 Mg Capsule.er 2 EACH PO 5XD (Reported) Carbidopa/Levodopa (Rytary ER 23.75 mg-95 mg Cap) 23.75 Mg-95 Mg Capsule.er 1 EACH PO 5XD (Reported) Citalopram (Citalopram) 20 Mg Tablet 40 MG PO DAILY (Reported) Quetiapine Fumarate (Quetiapine Fumarate) 25 Mg Tablet 25 MG PO HS (Reported) Rivastigmine (Rivastigmine) 1.5 Mg Capsule 2 CAPSULE PO BID (Reported) As needed HydrOXYzine HCl (HydrOXYzine HCl) 10 Mg Tablet 10-20 MG PO Q4-6H PRN PRN For Anxiety or Agitation (Reported) Hydrocodone-Acetaminophen 5-325 mg (Hydrocodone-Acetaminophen 5-325 mg) 1 Each Tablet 1-2 EACH PO q 4-6 PRN PRN For Pain (Reported) Miscellaneous Medications Levothyroxine Sodium (Levo-T) 100 Mcg Tablet 100 MCG PO (Reported) Followup Plan Disposition: Patient will be discharged home with her significant other Margot and with home health for physical therapy 3 times a week for 4 weeks and speech therapy 2 times a week for 4 weeks. This will allow for her to continue with strengthening and improvement in swallowing and avoid readmission in the future. I have recommended to both the patient and her significant other Margot that they look for signs that the patient might have recurrent urinary tract infection even if there service dog is acting strangely. Patient should then go to her primary care doctor for a urinalysis. Discharge Diet: No restrictions Discharge Activity: No restrictions Follow-up Provider: [facility] Follow-up with PCP in: 1 week (Dr. Gutierrez) Time spent Time spent on discharging this patient was greater than 35 minutes, over half of which was involved in counseling and coordination of care. Julien Reyes MD Oct 17, 2016 00:09
--- NOTE | 2016-10-17 16:10 | NUR ---
LATE NOTE: [facility] was unable to accommodate patient and spouse, transport waited for 30 mins and then spoke with [employer] Officer approved transport home with pharmacy stop. Patient and spouse live here in [place] and this was only option for discharge.
== END 2016-10-16 16:00 | disposition home or self-care (01) | DRG 872 ==
LOC: SED 08:31 → EDBD 08:31 → OSC 10:16 → OBSVTOIN 10:16
PROVIDERS: ADMIT Internal Medicine Infectious Disease; ATTEND Internal Medicine Infectious Disease
DX: A41.9 Sepsis, unspecified organism (principal); N39.0 Urinary tract infection, site not specified; F05 Delirium due to known physiological condition; E03.9 Hypothyroidism, unspecified; G89.4 Chronic pain syndrome; F02.80 Dementia in other diseases classified elsewhere, unspecified severity, without behavioral disturbance, psychotic disturbance, mood disturbance, and anxiety; G20 Parkinson's disease; F17.210 Nicotine dependence, cigarettes, uncomplicated; M48.00 Spinal stenosis, site unspecified; F32.9 Major depressive disorder, single episode, unspecified; B96.89 Other specified bacterial agents as the cause of diseases classified elsewhere; R32 Unspecified urinary incontinence